=== PATIENT | male | born 1985 | race African-American/Black ===

== ENCOUNTER 2017-07-08 12:31 | Inpatient (IN) | payer OTHER ==
[2017-07-08 13:27] VITALS: BMI 33.9
--- NOTE | 2017-07-08 13:38 | HP ---
CIWA Score - CIWA Score Nausea/Vomitin-Mild Nausea/No Vomiting Muscle Tremors: 4-Moderate,w/Arms Extend Anxiety: 4-Mod. Anxious/Guarded Agitation: 0-Normal Activity Paroxysmal Sweats: 1-Minimal Palms Moist Orientation: 0-Oriented Tacttile Disturbances: 1-Very Mild Itch/Numbness Auditory Disturbances: 1-Very Mild Visual Disturbances: 1-Very Mild Sensitivity Headache: 1-Very Mild CIWA-Ar Total Score: 14 Admission ROS BHS - HPI Chief Complaint: I need help to stop drinking Allergies/Adverse Reactions: Allergies Allergy/AdvReac Type Severity Reaction Status Date / Time No Known Drug Allergies Allergy Verified 10/11/16 12:58 shellfish derived Allergy Hives Verified 10/11/16 12:58 History of Present Illness: 32 yo gentleman here for detox from alcohol, also using pcp and cocaine. Last detox was here in september 2016, was in [place] in February. History seizure as child, no meds. Exam Limitations: Clinical Condition - Ebola screening Have you traveled outside of the country in the last 21 days: No Have you had contact with anyone from an Ebola affected area: No Have you been sick,other than usual withdrawal symptoms: No Do you have a fever: No - Review of Systems Constitutional: Loss of Appetite, Malaise, Changes in sleep EENT: reports: No Symptoms Reported Respiratory: reports: No Symptoms reported Cardiac: reports: No Symptoms Reported GI: reports: Nausea, Indigestion : reports: Frequency Integumentary: reports: No Symptoms Reported Neuro: reports: Headache Endocrine: reports: No Symptoms Reported Hematology: reports: No Symptoms Reported Psychiatric: reports: Judgement Intact, Mood/Affect Appropiate, Orientated x3, Anxious Other Systems: Reviewed and Negative Patient History - Patient Medical History Hx Anemia: No Hx Asthma: Yes Hx Chronic Obstructive Pulmonary Disease (COPD): No Hx Cancer: No Hx Cardiac Disorders: No Hx Congestive Heart Failure: No Hx Hypertension: No Hx Hypercholesterolemia: No Hx Pacemaker: No HX Cerebrovascular Accident: No Hx Seizures: Yes (AGE 6 NOT ON MEDS) Hx Dementia: No Hx Diabetes: No Hx Gastrointestinal Disorders: No Hx Liver Disease: No Hx Genitourinary Disorders: No Hx Sexually Transmitted Disorders: No Hx Renal Disease (ESRD): No Hx Thyroid Disease: No Hx Human Immunodeficiency Virus (HIV): No Hx Hepatitis C: No Hx Depression: Yes (NOT ON MEDS currently, hx hospitalization) Hx Suicide Attempt: Yes (years ago - tried to jump off bridge) Hx Bipolar Disorder: Yes (ON MEDS ) Hx Schizophrenia: Yes Other Medical History: psoriasis - Patient Surgical History Past Surgical History: No Hx Neurologic Surgery: No Hx Cataract Extraction: No Hx Cardiac Surgery: No Hx Lung Surgery: No Hx Breast Surgery: No Hx Breast Biopsy: No Hx Abdominal Surgery: No Hx Appendectomy: No Hx Cholecystectomy: No Hx Genitourinary Surgery: No Hx Section: No Hx Orthopedic Surgery: No Anesthesia Reaction: No - PPD History Date: 08/04/16 Results: 0 - Reproductive History Patient is a Female of Child Bearing Age (11 -55 yrs old): No (male) - Smoking Cessation Smoking history: Current every day smoker Have you smoked in the past 12 months: Yes Aproximately how many cigarettes per day: 30 Cigars Per Day: 0 Hx Chewing Tobacco Use: No Initiated information on smoking cessation: Yes 'Breaking Loose' booklet given: 07/08/17 (give on floor) - Substance & Tx. History Hx Alcohol Use: Yes Hx Substance Use: Yes Substance Use Type: Alcohol, Cocaine Hx Substance Use Treatment: Yes (detox, rehab) - Substances Abused Alcohol Route: Oral Frequency: 3-6 times per week Amount used: six 12 oz beer; 1/2 pint liquor Age of first use: 13 Date of Last Use: 07/07/17 Cocaine Route: Inhalation Frequency: 1-2 times per week Amount used: $40 Age of first use: 18 Date of Last Use: 07/05/17 PCP Route: Smoking Frequency: 3-6 times per week Amount used: $40 Age of first use: 15 Date of Last Use: 07/07/17 Family Disease History - Family Disease History Family Disease History: Respiratory: Brother (3 living - one with asthma), Sister (two living - one with asthma), Other: Father (living, hx drugs and etoh) , Mother (living, hx GERD), Son (one age 12 ), Daughter (two ages 10 and 5 - healthy) Admission Physical Exam BHS - Vital Signs Vital Signs: Vital Signs - 24 hr 07/08/17 13:17 Temperature 97 F L Pulse Rate 102 H Respiratory 20 Rate Blood Pressure 124/68 - Physical General Appearance: Yes: Nourished, Appropriately Dressed, Mild Distress, Obese , Anxious HEENTM: Yes: Hearing grossly Normal, Normal ENT Inspection, Normocephalic, Normal Voice, Pharynx Normal Respiratory: Yes: Normal Breath Sounds, No Respiratory Distress Neck: Yes: No masses,lesions,Nodules, Supple Breast: Yes: Breast Exam Deferred Cardiology: Yes: Regular Rhythm, Regular Rate Abdominal: Yes: Soft Genitourinary: Yes: Frequency Back: Yes: Normal Inspection Musculoskeletal: Yes: full range of Motion, Gait Steady Extremities: Yes: Normal Inspection, Non-Tender Neurological: Yes: Fully Oriented, Alert, Motor Strength 5/5, Normal Response, Depressed Affect Integumentary: Yes: Normal Color, Warm, Rash (psoriatic plaques both legs, scattered rash on back and upper arms) Lymphatic: Yes: Within Normal Limits - Diagnostic (1) Alcohol dependence with uncomplicated withdrawal Current Visit: Yes Status: Chronic (2) Cocaine dependence, uncomplicated Current Visit: Yes Status: Chronic (3) Nicotine dependence Current Visit: Yes Status: Chronic Qualifiers: Nicotine product type: cigarettes Substance use status: uncomplicated Qualified Code(s): F17.210 - Nicotine dependence, cigarettes, uncomplicated (4) PCP dependence Current Visit: Yes Status: Chronic (5) Asthma Current Visit: Yes Status: Chronic Qualifiers: Asthma severity: mild intermittent Asthma complication type: with status asthmaticus Qualified Code(s): J45.22 - Mild intermittent asthma with status asthmaticus (6) Psoriasis Current Visit: Yes Status: Chronic Cleared for Admission [facility] - Detox or Rehab [facility] Level of Care: Medically Managed Detox Regimen/Protocol: Librium [facility] Breath Alcohol Content Breath Alcohol Content: 0.081 Urine Drug Screen - Results Drug Screen Negative: No Urine Drug Screen Results: [place]SA-Cocaine, PCP-Phencyclidine
[2017-07-08] MEDS ORDERED: MAGNESIUM CITRATE 300 ML BOTTLE PO PRN (13:55)
[2017-07-08] MEDS ORDERED: MENTHOL/PHENOL 1 EACH UD MM PRN (13:55)
[2017-07-08] MEDS ORDERED: guaiFENesin/D-METHORPHAN HB 10 ML UNIT-DOSE CUPS PO PRN (13:55)
[2017-07-08] MEDS ORDERED: P-EPHED 60MG/TRIPROLIDI 2.5MG TABLET PO PRN (13:55)
[2017-07-08] MEDS ORDERED: LOPERAMIDE HCL 2 MG CAPSULE PO PRN (13:55)
[2017-07-08] MEDS ORDERED: NICOTINE POLACRILEX 4 MG GUM BUC PRN (13:55)
[2017-07-08] MEDS ORDERED: ACETAMINOPHEN 325 MG TABLET (FP) PO PRN (13:55)
[2017-07-08] MEDS ORDERED: chlordiazePOXIDE HCL 25 MG CAPSULE PO PRN (13:55)
[2017-07-08] MEDS ORDERED: IBUPROFEN 400 MG TABLET (FP) PO PRN (13:55)
[2017-07-08] MEDS ORDERED: MAGNESIUM HYDROX 2400MG/30ML ORAL SUSPENSION 30 ML CUP PO PRN (13:55)
[2017-07-08] MEDS ORDERED: MAG HYDROX/AL HYDROX/SIMETH 30 ML UNIT-DOSE CUP PO PRN (13:55)
[2017-07-08] MEDS ORDERED: KETOCONAZOLE 2 % SHAMPOO 120 ML BOTTLE TP SCH (14:00)
[2017-07-08] MEDS ORDERED: BETAMETHASONE VALERATE 0.1% CREAM 15 GM TUBE TP SCH (14:00)
[2017-07-08] MEDS ORDERED: COLLOIDAL OATMEAL 1 BAR EACH TP PRN (14:23)
[2017-07-08] MEDS ORDERED: chlordiazePOXIDE HCL 25 MG CAPSULE PO ONE (16:30)
[2017-07-08] MEDS ORDERED: BETAMETHASONE VALERATE 0.1% CREAM 15 GM TUBE TP PRN (17:25)
[2017-07-08] MEDS: chlordiazePOXIDE HCL 25 MG CAPSULE PO SCH ×2 (17:32→22:06)
[2017-07-08] MEDS ORDERED: ALBUTEROL SO4 6.7 GM HFA INHALER IH PRN (19:08)
[2017-07-08] MEDS: ALBUTEROL SO4 6.7 GM HFA INHALER IH SCH (19:54)
[2017-07-08] MEDS: AMMONIUM LACTATE 12% LOTION 225 GM BOTTLE TP SCH ×2 (20:00→21:40)
[2017-07-08] MEDS: THIAMINE HCL 100 MG TABLET (FP) PO SCH (22:06)
[2017-07-08] MEDS: PATIENT'S OWN MEDICATION (NON-FORMULARY) (Apremilast [Otezla] 30 MG) PO SCH (22:06)
[2017-07-08] MEDS: diphenhydrAMINE HCL 50 MG CAPSULE PO PRN (22:09)
[2017-07-09] MEDS: chlordiazePOXIDE HCL 25 MG CAPSULE PO SCH ×4 (05:31→22:03)
--- NOTE | 2017-07-09 08:45 | EKG ---
Test Reason : Blood Pressure : / mmHG Vent. Rate : 081 BPM Atrial Rate : 081 BPM P-R Int : 154 ms QRS Dur : 086 ms QT Int : 396 ms P-R-T Axes : 061 053 046 degrees QTc Int : 460 ms SINUS RHYTHM WITH MARKED SINUS ARRHYTHMIA WITH OCCASIONAL PREMATURE VENTRICULAR COMPLEXES OTHERWISE NORMAL ECG NO PREVIOUS ECGS AVAILABLE Confirmed by MD HERNAN, FLORES ([id number]) on 07/09/2017 8:45:21 AM Referred By: Confirmed By:FLORES BECERRA MD
--- NOTE | 2017-07-09 08:57 | HP ---
Psychiatrist Admission - Data Vital Signs: Vital Signs - 24 hr 07/08/17 07/08/17 07/08/17 13:17 18:45 22:26 Temperature 97 F L 97.5 F L 98.3 F Pulse Rate 102 H 81 70 Respiratory 20 18 18 Rate Blood Pressure 124/68 120/81 108/73 07/09/17 07/09/17 07/09/17 00:59 03:20 06:32 Temperature 95.5 F L Pulse Rate 77 Respiratory 18 18 18 Rate Blood Pressure 115/56 Allergies/Adverse Reactions: Allergies Allergy/AdvReac Type Severity Reaction Status Date / Time No Known Drug Allergies Allergy Verified 07/08/17 15:38 shellfish derived Allergy Hives Verified 07/08/17 15:38
--- NOTE | 2017-07-09 08:58 | CONSULT ---
[facility] Psychiatric Consult - Data Date of interview: 07/09/17 Admission source: Self-referred Identifying data: Mr Yip is a 32 years old single male, father of 4 children, unemployed on SSI, homeless seeking detox treatment for alcohol, cocaine and pcp Substance Abuse History: Reports history of alcohol, cocaine and pcp use. He started drinking alcohol at age 13, smoking pcp at 15 and using cocaine at 18. He consumes half a pint of liquor & 6x 12oz of beer 3-6 times weekly, $40 worth of pcp 3-6 times weekly and $40 worth of cocaine 1-2 times weekly. Last drank beer & smoked pcp on 07/07/17 and used cocaine on 07/05/17 Medical History: Significant for Asthma, Psoriatic arthritis and history of seizure once at age 1 or 2. Smokes cigarettes 1.5ppd Psychiatric History: Reports that his first psychiatric contact was in 2007 [facility] but does not rememeber much about it. His first psychiatric hospitalization was in Nov 2015 at [facility] in [place]. He was diagnosed with Bipolar/ Schizoprenia and started on medications. Reports 4 subsequent hospitalizations at [place] [address] & [facility] once. Most recent one was in Aug 2016 at [facility]. He was discharged on Depakote 1500 mg po BID, [place] 600 mg po BID, Risperdal 3 mg po BID, Seroquel 200 mg po HS and Hydroxyzine 25 mg po TID. Reports that he was referred to [facility] but never attended. Claims that he was placed on a waiting list and was never called. 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 Reports getting some psychotropic medications prescribed by his primary care physician byt could not name them. According to pharmacy search, he filled scripts for Depakote 500 mg po BID & Cogentin 1 mg po BID on 01/31/17 and Paxil 40 mg po daily & ambien 5 mg po HS on 06/05/17. He wants to resume taking Paxil and Ambien and Seroquel at this time Reports history of 3 suicidal attempts by trying to jum off a bridge. Physical/Sexual Abuse/Trauma History: Denies history of verbal, physical or sexual abuse as well as DV relationship Additional Comment: Reports history of multiple previous misdemeanor arrests. No probation or open case at present Mental Status Exam - Mental Status Exam Alert and Oriented to: Time, Place, Person Cognitive Function: Fair Patient Appearance: Well Groomed Mood: Depressed, Anxious Affect: Normal Range Patient Behavior: Cooperative Speech Pattern: Clear Voice Loudness: Normal Thought Process: Intact, Goal Oriented Thought Disorder: Not Present Hallucinations: Denies Suicidal Ideation: Denies Homicidal Ideation: Denies Insight/Judgement: Poor Sleep: Poorly Appetite: Fair Muscle strength/Tone: Normal Gait/Station: Normal Psychiatric Findings - Problem List ([place] 1, 2,3) (1) Schizoaffective disorder Current Visit: No Status: Acute (2) Alcohol dependence with uncomplicated withdrawal Current Visit: Yes Status: Chronic (3) Cocaine dependence, uncomplicated Current Visit: Yes Status: Chronic (4) Nicotine dependence Current Visit: Yes Status: Chronic Qualifiers: Nicotine product type: cigarettes Substance use status: uncomplicated Qualified Code(s): F17.210 - Nicotine dependence, cigarettes, uncomplicated (5) Asthma Current Visit: Yes Status: Chronic Qualifiers: Asthma severity: mild intermittent Asthma complication type: with status asthmaticus Qualified Code(s): J45.22 - Mild intermittent asthma with status asthmaticus (6) Psoriasis Current Visit: Yes Status: Chronic - Initial Treatment Plan Initial Treatment Plan: 1) Resume Paxil 40 mg po daily and Ambien 5 mg po HS prn for insomnia. 2) Start Seroquel 100 mg po HS. 3) Continue inpatient detoxification
[2017-07-09] MEDS: PATIENT'S OWN MEDICATION (NON-FORMULARY) (Apremilast [Otezla] 30 MG) PO SCH ×2 (10:09→22:03)
[2017-07-09] MEDS: PRENATAL VITAMINS W/ FOLIC ACID TABLET (FP) PO SCH (10:09)
[2017-07-09] MEDS: hydrOXYzine PAMOATE 25 MG CAPSULE (FP) PO PRN (10:11)
[2017-07-09] MEDS: AMMONIUM LACTATE 12% LOTION 225 GM BOTTLE TP SCH ×2 (10:12→22:02)
[2017-07-09 10:17] LABS: MCH 31.2 pg (25.7-33.7); MCHC 32.7 g/dl (32.0-35.9); MEAN CELL VOLUME 95.2 fl (80-96); MEAN PLT VOLUME 9.7 fl (7.5-11.1); PLATELET COUNT 233 K/MM3 (134-434); RDW 14.2 % (11.9-15.9); WHITE BLOOD COUNT 7.3 K/mm3 (4.0-10.0)
[2017-07-09 10:18] LABS: URINE APPEARANCE SLCLOUDY; URINE BILIRUBIN NEGATIVE (NEGATIVE); URINE BLOOD NEGATIVE (NEGATIVE); URINE COLOR AMBER; URINE GLUCOSE (UA) NEGATIVE (NEGATIVE); URINE KETONE NEGATIVE (NEGATIVE); URINE LEUK ESTERASE NEGATIVE (NEGATIVE); URINE NITRITE NEGATIVE (NEGATIVE); URINE PROTEIN NEGATIVE (NEGATIVE); URINE UROBILINOGEN NEGATIVE mg/dL (0.2-1.0)
[2017-07-09 10:29] LABS: ALBUMIN 3.3 g/dl (3.4-5.0); ANION GAP 7 (8-16); CALCIUM 8.6 mg/dL (8.5-10.1); CO2 30 mmol/L (21-32); CREATININE 0.9 mg/dL (0.7-1.3); GLUCOSE,RANDOM 87 mg/dL (74-106); SGOT/AST 13 U/L (15-37); SGPT/ALT 28 U/L (12-78)
[2017-07-09 10:32] LABS: ALK PHOS 62 U/L (45-117); BILIRUBIN,TOTAL 0.8 mg/dL (0.2-1.0)
[2017-07-09 11:01] LABS: HIV 1 & 2 AB NEGATIVE; HIV 1 AGp24 NEGATIVE
[2017-07-09] MEDS: PARoxetine HCL 20 MG TABLET (FP) PO SCH (13:22)
--- NOTE | 2017-07-09 13:27 | PN ---
[facility] CIWA - CIWA Score Nausea/Vomitin Muscle Tremors: 3 Anxiety: 3 Agitation: 4-Moderately Restless Paroxysmal Sweats: 3 Orientation: 0-Oriented Tacttile Disturbances: 1-Very Mild Itch/Numbness Auditory Disturbances: 0-None Visual Disturbances: 0-None Headache: 0-None Present CIWA-Ar Total Score: 17 S Progress Note (SOAP) Subjective: Tremor, chills, nausea, interrupted sleep, sweating Objective: 07/09/17 13:25 Last Vital Signs Temp Pulse Resp BP Pulse Ox 98.1 F 70 18 114/66 07/09/17 09:56 07/09/17 09:56 07/09/17 09:56 07/09/17 09:56 Laboratory Tests 07/09/17 07/09/17 07/09/17 07:30 07:30 07:30 WBC 7.3 RBC 4.52 Hgb 14.1 Hct 43.1 MCV 95.2 MCH 31.2 MCHC 32.7 RDW 14.2 Plt Count 233 D MPV 9.7 Sodium 138 Potassium 4.1 Chloride 101 Carbon Dioxide 30 Anion Gap 7 L BUN 8 Creatinine 0.9 Creat Clearance w eGFR > 60 Random Glucose 87 Calcium 8.6 Total Bilirubin 0.8 D AST 13 L ALT 28 D Alkaline Phosphatase 62 Total Protein 6.0 L Albumin 3.3 L Urine Color Urine Appearance Urine pH Ur Specific [place] Urine Protein Urine Glucose (UA) Urine Ketones Urine Blood Urine Nitrite Urine Bilirubin Urine Urobilinogen RPR Titer Nonreactive HIV 1&2 Antibody Screen HIV P24 Antigen 07/09/17 07/09/17 07:30 08:50 WBC RBC Hgb Hct MCV MCH MCHC RDW Plt Count MPV Sodium Potassium Chloride Carbon Dioxide Anion Gap BUN Creatinine Creat Clearance w eGFR Random Glucose Calcium Total Bilirubin AST ALT Alkaline Phosphatase Total Protein Albumin Urine Color Ly Urine Appearance Slcloudy Urine pH 5.0 Ur Specific [place] >= 1.030 H Urine Protein Negative Urine Glucose (UA) Negative Urine Ketones Negative Urine Blood Negative Urine Nitrite Negative Urine Bilirubin Negative Urine Urobilinogen Negative RPR Titer HIV 1&2 Antibody Screen Negative HIV P24 Antigen Negative Labs noted Assessment: 07/09/17 13:26 Withdrawal symptoms History of psoriasis/seborrheic dermatitis: on nizoral topical shampoo q3 days, only available as cream as per pharmacist Plan: Continue detox Encouraged to drink lots of water Psoriasis/seborrheic dermatitis: d/c nizoral shampoo, ordered for nizoral topical cream 2% apply daily x 3 days (lather, then rinse after 5 minutes), f/u with PCP or Stamping Die Maker post discharge for management
[2017-07-09] MEDS: NICOTINE 21 MG/24 HOURS TOPICAL PATCH TD SCH (18:15)
[2017-07-09] MEDS ORDERED: QUEtiapine FUMARATE 200 MG TABLET PO SCH (22:00)
[2017-07-09] MEDS: ZOLPIDEM TARTRATE 5 MG TABLET PO PRN (22:03)
[2017-07-09] MEDS: QUEtiapine FUMARATE 100 MG TABLET (FP) PO SCH (22:03)
[2017-07-09] MEDS: THIAMINE HCL 100 MG TABLET (FP) PO SCH (22:03)
[2017-07-10] MEDS: chlordiazePOXIDE HCL 25 MG CAPSULE PO SCH ×2 (05:54→10:17)
[2017-07-10] MEDS ORDERED: KETOCONAZOLE 2% CREAM - 60GM TUBE TP SCH (10:00)
[2017-07-10] MEDS: KETOCONOZOLE 2% TOPICAL CREAM 15 GM TUBE TP SCH (10:14)
[2017-07-10] MEDS: NICOTINE 21 MG/24 HOURS TOPICAL PATCH TD SCH (10:15)
[2017-07-10] MEDS: AMMONIUM LACTATE 12% LOTION 225 GM BOTTLE TP SCH ×2 (10:16→22:03)
[2017-07-10] MEDS: PARoxetine HCL 20 MG TABLET (FP) PO SCH (10:16)
[2017-07-10] MEDS: PATIENT'S OWN MEDICATION (NON-FORMULARY) (Apremilast [Otezla] 30 MG) PO SCH ×2 (10:16→22:02)
[2017-07-10] MEDS: PRENATAL VITAMINS W/ FOLIC ACID TABLET (FP) PO SCH (10:17)
--- NOTE | 2017-07-10 10:46 | PN ---
[facility] CIWA - CIWA Score Nausea/Vomitin-No Nausea/No Vomiting Muscle Tremors: 4-Moderate,w/Arms Extend Anxiety: 4-Mod. Anxious/Guarded Agitation: 4-Moderately Restless Paroxysmal Sweats: 3 Orientation: 0-Oriented Tacttile Disturbances: 0-None Auditory Disturbances: 0-None Visual Disturbances: 0-None Headache: 0-None Present CIWA-Ar Total Score: 15 BHS Progress Note (SOAP) Subjective: Anxiety,tremors,sweating,interrupted sleep,restless Objective: 07/10/17 10:44 Vital Signs - 8 hr 07/10/17 07/10/17 07/10/17 03:21 06:09 09:04 Temperature 96.7 F L 97.5 F L Pulse Rate 87 70 Respiratory 18 18 18 Rate Blood Pressure 124/70 120/73 Laboratory Last Values WBC 7.3 K/mm3 (4.0-10.0) 07/09/17 07:30 RBC 4.52 M/mm3 (4.00-5.60) 07/09/17 07:30 Hgb 14.1 GM/dL (11.7-16.9) 07/09/17 07:30 Hct 43.1 % (35.4-49) 07/09/17 07:30 MCV 95.2 fl (80-96) 07/09/17 07:30 MCH 31.2 pg (25.7-33.7) 07/09/17 07:30 MCHC 32.7 g/dl (32.0-35.9) 07/09/17 07:30 RDW 14.2 % (11.9-15.9) 07/09/17 07:30 Plt Count 233 K/MM3 (134-434) D 07/09/17 07:30 MPV 9.7 fl (7.5-11.1) 07/09/17 07:30 Sodium 138 mmol/L (136-145) 07/09/17 07:30 Potassium 4.1 mmol/L (3.5-5.1) 07/09/17 07:30 Chloride 101 mmol/L (98-107) 07/09/17 07:30 Carbon Dioxide 30 mmol/L (21-32) 07/09/17 07:30 Anion Gap 7 (8-16) L 07/09/17 07:30 BUN 8 mg/dL (7-18) 07/09/17 07:30 Creatinine 0.9 mg/dL (0.7-1.3) 07/09/17 07:30 Creat Clearance w eGFR > 60 (>60) 07/09/17 07:30 Random Glucose 87 mg/dL (74-106) 07/09/17 07:30 Calcium 8.6 mg/dL (8.5-10.1) 07/09/17 07:30 Total Bilirubin 0.8 mg/dL (0.2-1.0) D 07/09/17 07:30 AST 13 U/L (15-37) L 07/09/17 07:30 ALT 28 U/L (12-78) D 07/09/17 07:30 Alkaline Phosphatase 62 U/L (45-117) 07/09/17 07:30 Total Protein 6.0 g/dl (6.4-8.2) L 07/09/17 07:30 Albumin 3.3 g/dl (3.4-5.0) L 07/09/17 07:30 Urine Color Ly 07/09/17 08:50 Urine Appearance Slcloudy 07/09/17 08:50 Urine pH 5.0 (5.0-8.0) 07/09/17 08:50 Ur Specific [place] >= 1.030 (1.005-1.025) H 07/09/17 08:50 Urine Protein Negative (NEGATIVE) 07/09/17 08:50 Urine Glucose (UA) Negative (NEGATIVE) 07/09/17 08:50 Urine Ketones Negative (NEGATIVE) 07/09/17 08:50 Urine Blood Negative (NEGATIVE) 07/09/17 08:50 Urine Nitrite Negative (NEGATIVE) 07/09/17 08:50 Urine Bilirubin Negative (NEGATIVE) 07/09/17 08:50 Urine Urobilinogen Negative mg/dL (0.2-1.0) 07/09/17 08:50 RPR Titer Nonreactive (NONREACTIVE) 07/09/17 07:30 HIV 1&2 Antibody Screen Negative 07/09/17 07:30 HIV P24 Antigen Negative 07/09/17 07:30 labs noted Assessment: 07/10/17 10:45 Withdrawal sx. Plan: Continue detox
[2017-07-10] MEDS: chlordiazePOXIDE 5 MG CAPSULE PO SCH ×2 (17:12→22:03)
[2017-07-10] MEDS: hydrOXYzine PAMOATE 25 MG CAPSULE (FP) PO PRN (17:14)
[2017-07-10] MEDS: THIAMINE HCL 100 MG TABLET (FP) PO SCH (22:02)
[2017-07-10] MEDS: QUEtiapine FUMARATE 100 MG TABLET (FP) PO SCH (22:03)
[2017-07-10] MEDS: ZOLPIDEM TARTRATE 5 MG TABLET PO PRN (22:03)
[2017-07-11] MEDS: hydrOXYzine PAMOATE 25 MG CAPSULE (FP) PO PRN ×3 (01:02→17:14)
[2017-07-11] MEDS: chlordiazePOXIDE 5 MG CAPSULE PO SCH ×2 (05:44→10:07)
[2017-07-11] MEDS: PRENATAL VITAMINS W/ FOLIC ACID TABLET (FP) PO SCH (10:07)
[2017-07-11] MEDS: PARoxetine HCL 20 MG TABLET (FP) PO SCH (10:08)
[2017-07-11] MEDS: KETOCONOZOLE 2% TOPICAL CREAM 15 GM TUBE TP SCH (10:08)
[2017-07-11] MEDS: NICOTINE 21 MG/24 HOURS TOPICAL PATCH TD SCH (10:08)
[2017-07-11] MEDS: PATIENT'S OWN MEDICATION (NON-FORMULARY) (Apremilast [Otezla] 30 MG) PO SCH ×2 (10:09→22:11)
[2017-07-11] MEDS: AMMONIUM LACTATE 12% LOTION 225 GM BOTTLE TP SCH ×2 (10:09→22:09)
--- NOTE | 2017-07-11 12:09 | PN ---
BHS Progress Note (SOAP) Subjective: Tremors, Body Aches, Sweating, Interrupted sleep. Objective: PT. A & O X 3, OBSERVED AMBULATING ON UNIT. NO ACUTE DISTRESS. 07/11/17 12:04 Vital Signs Temperature 98.9 F 07/11/17 09:20 Pulse Rate 101 H 07/11/17 09:20 Respiratory Rate 20 07/11/17 09:20 Blood Pressure 123/76 07/11/17 09:20 O2 Sat by Pulse Oximetry (%) Laboratory Tests 07/09/17 07/09/17 07/09/17 07:30 07:30 07:30 WBC 7.3 RBC 4.52 Hgb 14.1 Hct 43.1 MCV 95.2 MCH 31.2 MCHC 32.7 RDW 14.2 Plt Count 233 D MPV 9.7 Sodium 138 Potassium 4.1 Chloride 101 Carbon Dioxide 30 Anion Gap 7 L BUN 8 Creatinine 0.9 Creat Clearance w eGFR > 60 Random Glucose 87 Calcium 8.6 Total Bilirubin 0.8 D AST 13 L ALT 28 D Alkaline Phosphatase 62 Total Protein 6.0 L Albumin 3.3 L Urine Color Urine Appearance Urine pH Ur Specific [place] Urine Protein Urine Glucose (UA) Urine Ketones Urine Blood Urine Nitrite Urine Bilirubin Urine Urobilinogen RPR Titer Nonreactive HIV 1&2 Antibody Screen HIV P24 Antigen 07/09/17 07/09/17 07:30 08:50 WBC RBC Hgb Hct MCV MCH MCHC RDW Plt Count MPV Sodium Potassium Chloride Carbon Dioxide Anion Gap BUN Creatinine Creat Clearance w eGFR Random Glucose Calcium Total Bilirubin AST ALT Alkaline Phosphatase Total Protein Albumin Urine Color Ly Urine Appearance Slcloudy Urine pH 5.0 Ur Specific [place] >= 1.030 H Urine Protein Negative Urine Glucose (UA) Negative Urine Ketones Negative Urine Blood Negative Urine Nitrite Negative Urine Bilirubin Negative Urine Urobilinogen Negative RPR Titer HIV 1&2 Antibody Screen Negative HIV P24 Antigen Negative LABS NOTED. Assessment: 07/11/17 12:05 WITHDRAWAL SYMPTOMS. Plan: CONTINUE DETOX.
[2017-07-11] MEDS: chlordiazePOXIDE HCL 10 MG CAPSULE PO SCH ×2 (17:12→22:11)
[2017-07-11] MEDS: THIAMINE HCL 100 MG TABLET (FP) PO SCH (22:09)
[2017-07-11] MEDS: QUEtiapine FUMARATE 100 MG TABLET (FP) PO SCH (22:11)
[2017-07-11] MEDS: diphenhydrAMINE HCL 50 MG CAPSULE PO PRN (22:12)
[2017-07-12] MEDS: chlordiazePOXIDE HCL 10 MG CAPSULE PO SCH (05:43)
[2017-07-12 06:26] VITALS: BP 116/70; PULSE 72; TEMP 96.8
--- NOTE | 2017-07-12 16:05 | DS ---
[facility] Detox Discharge Summary Admission Date: 07/08/17 Discharge Date: 07/12/17 - History Present History: Alcohol Dependence, Cocaine Dependence, Pcp Dependence Additional Comments: PATIENT RETURNING TO [facility] ([place] [facility] FOR AFTERCARE. PATIENT WAS DISCHARGED FROM DETOX UNIT IN STABLE MEDICAL CONDITION. Pertinent Past History: Asthma, COPD, Depression, Bipolar disorder, Schizophrenia, Psoriasis, Nicotine Dependence. - Physical Exam Results Vital Signs: Vital Signs Temperature 96.8 F L 07/12/17 06:25 Pulse Rate 72 07/12/17 06:25 Respiratory Rate 18 07/12/17 06:25 Blood Pressure 116/70 07/12/17 06:25 O2 Sat by Pulse Oximetry (%) Pertinent Admission Physical Exam Findings: WITHDRAWAL SYMPTOMS. Laboratory Tests 07/09/17 07/09/17 07/09/17 07:30 07:30 07:30 WBC 7.3 RBC 4.52 Hgb 14.1 Hct 43.1 MCV 95.2 MCH 31.2 MCHC 32.7 RDW 14.2 Plt Count 233 D MPV 9.7 Sodium 138 Potassium 4.1 Chloride 101 Carbon Dioxide 30 Anion Gap 7 L BUN 8 Creatinine 0.9 Creat Clearance w eGFR > 60 Random Glucose 87 Calcium 8.6 Total Bilirubin 0.8 D AST 13 L ALT 28 D Alkaline Phosphatase 62 Total Protein 6.0 L Albumin 3.3 L Urine Color Urine Appearance Urine pH Ur Specific [place] Urine Protein Urine Glucose (UA) Urine Ketones Urine Blood Urine Nitrite Urine Bilirubin Urine Urobilinogen RPR Titer Nonreactive HIV 1&2 Antibody Screen HIV P24 Antigen 07/09/17 07/09/17 07:30 08:50 WBC RBC Hgb Hct MCV MCH MCHC RDW Plt Count MPV Sodium Potassium Chloride Carbon Dioxide Anion Gap BUN Creatinine Creat Clearance w eGFR Random Glucose Calcium Total Bilirubin AST ALT Alkaline Phosphatase Total Protein Albumin Urine Color Ly Urine Appearance Slcloudy Urine pH 5.0 Ur Specific [place] >= 1.030 H Urine Protein Negative Urine Glucose (UA) Negative Urine Ketones Negative Urine Blood Negative Urine Nitrite Negative Urine Bilirubin Negative Urine Urobilinogen Negative RPR Titer HIV 1&2 Antibody Screen Negative HIV P24 Antigen Negative LABS NOTED. - Treatment Hospital Course: Detox Protocol Followed, Detoxed Safely, Responded well, Discharged Condition Good Patient has Accepted a Rehab Referral to: NO. PT RETURNING TO [facility] ([place], [place]). - Medication Discharge Medications: Ambulatory Orders Apremilast [Otezla] 30 mg PO BID #60 tablet 08/30/16 Quetiapine Fumarate [Seroquel -] 200 mg PO HS 10/03/16 Albuterol Sulfate Inhaler - [Ventolin HFA Inhaler -] 2 inh IH Q4H #1 inhaler Ammonium Lactate Lotion [Lac-Hydrin 12] 1 applic TP BID #1 bottle 10/07/16 Betamethasone Valerate 45 gm TP PRN #1 cream..g. 10/07/16 Ketoconazole 2% Shampoo [Nizoral 2% Shampoo -] 1 applic TP Q72H #1 bottle Paroxetine HCl [Paxil] 40 mg PO DAILY #30 tablet 07/09/17 Quetiapine Fumarate [Seroquel] 100 mg PO HS #30 tablet 07/09/17 - Diagnosis (1) Alcohol dependence with uncomplicated withdrawal Status: Acute (2) Asthma Status: Chronic Qualifiers: Asthma severity: mild intermittent Asthma complication type: uncomplicated Qualified Code(s): J45.20 - Mild intermittent asthma, uncomplicated (3) Cocaine dependence, uncomplicated Status: Chronic (4) Nicotine dependence Status: Chronic Qualifiers: Nicotine product type: cigarettes Substance use status: uncomplicated Qualified Code(s): F17.210 - Nicotine dependence, cigarettes, uncomplicated (5) PCP dependence Status: Chronic (6) Psoriasis Status: Chronic (7) Schizoaffective disorder Status: Acute Qualifiers: Schizoaffective disorder type: unspecified Qualified Code(s): F25.9 - Schizoaffective disorder, unspecified (8) Substance-induced sleep disorder Status: Acute (9) COPD (chronic obstructive pulmonary disease) Status: Chronic Qualifiers: COPD type: emphysema Emphysema type: unilateral Qualified Code(s ): J43.0 - Unilateral pulmonary emphysema [MacLeod's syndrome] (10) Schizophrenia Status: Chronic Qualifiers: Schizophrenia type: disorganized schizophrenia Qualified Code(s): F20.1 - Disorganized schizophrenia (11) Substance induced mood disorder Status: Suspected - AMA Did Patient Leave Against Medical Advice: No
== END 2017-07-12 09:40 | disposition home or self-care (01) | DRG 774 ==
LOC: YASAS 12:31 → Y3N 15:44
PROVIDERS: ADMIT Internal Medicine; ATTEND Internal Medicine
PROC: HZ2ZZZZ Detoxification Services for Substance Abuse Treatment (ICD-10-PCS; principal; 2017-07-08)
DX: F10.230 Alcohol dependence with withdrawal, uncomplicated (principal); F14.20 Cocaine dependence, uncomplicated; F16.20 Hallucinogen dependence, uncomplicated; F17.210 Nicotine dependence, cigarettes, uncomplicated; F25.9 Schizoaffective disorder, unspecified; F19.24 Other psychoactive substance dependence with psychoactive substance-induced mood disorder; F19.282 Other psychoactive substance dependence with psychoactive substance-induced sleep disorder; F20.1 Disorganized schizophrenia; J45.20 Mild intermittent asthma, uncomplicated; J43.0 Unilateral pulmonary emphysema [MacLeod's syndrome]; E66.9 Obesity, unspecified; L40.9 Psoriasis, unspecified; Z68.33 Body mass index [BMI] 33.0-33.9, adult; Z86.69 Personal history of other diseases of the nervous system and sense organs; Z91.013 Allergy to seafood; Z91.5 Personal history of self-harm
CPT/HCPCS: 36415; 80053; 81003; 85027; 86593; 87389; 93005; 93010

== ENCOUNTER 2017-11-01 08:15 | Inpatient (IN) | payer OTHER ==
[2017-11-01 09:51] VITALS: BMI 33.9
--- NOTE | 2017-11-01 13:35 | HP ---
CIWA Score - CIWA Score Nausea/Vomitin-No Nausea/No Vomiting Muscle Tremors: 3 Anxiety: 5 Agitation: 4-Moderately Restless Paroxysmal Sweats: 1-Minimal Palms Moist Orientation: 0-Oriented Tacttile Disturbances: 3-Moderate Itch/Numb/Burn Auditory Disturbances: 0-None Visual Disturbances: 0-None Headache: 1-Very Mild CIWA-Ar Total Score: 17 Admission ROS S - HPI Chief Complaint: WITHDRAWAL SX FROM ALCOHOL. Allergies/Adverse Reactions: Allergies Allergy/AdvReac Type Severity Reaction Status Date / Time No Known Drug Allergies Allergy Verified 11/01/17 10:10 shellfish derived Allergy Hives Verified 11/01/17 10:10 History of Present Illness: 32 Y/O H/MALE WITH A HX OF ALCOHOL,PCP,MARIJUANA AND COCAINE DEPENDENCE SEEKING DETOX [place]. Exam Limitations: No Limitations - Ebola screening Have you traveled outside of the country in the last 21 days: No Have you had contact with anyone from an Ebola affected area: No Have you been sick,other than usual withdrawal symptoms: No - Review of Systems Constitutional: Chills, Diaphoresis, Loss of Appetite, Night Sweats EENT: reports: Blurred Vision (RIGHT EYE BLURRINESS- TRUAMA AT YOUNG AGE.), Dental Problems (MISSING TEETH/EXTRACTIONS.) Respiratory: reports: Shortness of Breath, Wheezing (HX ASTHMA) GI: reports: Constipated (SOMETIMES) : reports: No Symptoms Reported Musculoskeletal: reports: Joint Pain, Other (PSORIATIC ARTHRITIS) Integumentary: reports: Rash (HX PSORIATIC ARTHRITIS) Neuro: reports: Seizure (LAST EPISODE A CHILD), Tremors, Unsteady Gait, Dizziness Endocrine: reports: No Symptoms Reported Hematology: reports: No Symptoms Reported Psychiatric: reports: Orientated x3, Anxious, Depressed Other Systems: Reviewed and Negative Patient History - Patient Medical History Hx Anemia: No Hx Asthma: Yes (MDI) Hx Chronic Obstructive Pulmonary Disease (COPD): No Hx Cancer: No Hx Cardiac Disorders: No Hx Congestive Heart Failure: No Hx Hypertension: No Hx Hypercholesterolemia: No Hx Pacemaker: No HX Cerebrovascular Accident: No Hx Seizures: Yes (as a child.) Hx Dementia: No Hx Diabetes: No Hx Gastrointestinal Disorders: No Hx Liver Disease: No Hx Genitourinary Disorders: No Hx Sexually Transmitted Disorders: No Hx Renal Disease (ESRD): No Hx Thyroid Disease: No Hx Human Immunodeficiency Virus (HIV): No (NEGATIVE HX) Hx Hepatitis C: No Hx Depression: Yes (ON MED) Hx Suicide Attempt: Yes (Pt states he tried to jump off bridge 1 year ago but was stopped by lodging house keeper.) Hx Bipolar Disorder: Yes (ON MEDS ) Hx Schizophrenia: Yes Other Medical History: DENIES CURRENT S/H IDEATIONS TODAY. - Patient Surgical History Past Surgical History: No Hx Neurologic Surgery: No Hx Cataract Extraction: No Hx Cardiac Surgery: No Hx Lung Surgery: No Hx Breast Surgery: No Hx Breast Biopsy: No Hx Abdominal Surgery: No Hx Appendectomy: No Hx Cholecystectomy: No Hx Genitourinary Surgery: No Hx Section: No Hx Orthopedic Surgery: No Anesthesia Reaction: No - PPD History Previous Implant?: Yes Documented Results: Negative w/proof Implanted On Prior [facility] Admission?: Yes Date: 08/04/16 Results: 0 MM PPD to be Administered?: Yes - Reproductive History Patient is a Female of Child Bearing Age (11 -55 yrs old): No (MALE) - Smoking Cessation Smoking history: Current every day smoker Have you smoked in the past 12 months: Yes Aproximately how many cigarettes per day: 20 Cigars Per Day: 0 Hx Chewing Tobacco Use: No Initiated information on smoking cessation: Yes 'Breaking Loose' booklet given: 11/01/17 - Substance & Tx. History Hx Alcohol Use: Yes (BEER/LIQUOUR) Hx Substance Use: Yes (PCP) Substance Use Type: Alcohol Hx Substance Use Treatment: Yes (LAST TX AT [facility]-DETOX) - Substances Abused Alcohol Route: Oral Frequency: Daily Amount used: 6 PK BEER Age of first use: 13 Date of Last Use: 10/31/17 PCP Route: Smoking Frequency: Daily Amount used: 2-10 BAGS Age of first use: 15 Date of Last Use: 10/31/17 Family Disease History - Family Disease History Family Disease History: Respiratory: Brother (3 living - one with asthma), Sister (two living - one with asthma), Other: Father (living, hx drugs and etoh) , Mother (living, hx GERD), Son (one age 12 ), Daughter (two ages 10 and 5 - healthy) Admission Physical Exam BHS - Vital Signs Vital Signs: Vital Signs - 24 hr 11/01/17 09:48 Temperature 97 F L Pulse Rate 64 Respiratory 20 Rate Blood Pressure 137/96 - Physical General Appearance: Yes: Moderate Distress HEENTM: Yes: EOMI, Normocephalic, HAL, Nasal Congestion Respiratory: Yes: Chest Non-Tender, Lungs Clear, No Respiratory Distress Neck: Yes: No masses,lesions,Nodules, Supple, Trachea in good position Breast: Yes: Breast Exam Deferred Cardiology: Yes: Regular Rhythm, Regular Rate, S1, S2 Abdominal: Yes: Normal Bowel Sounds, Non Tender, Soft Genitourinary: Yes: Other (N/C) Back: Yes: Within Normal Limits Musculoskeletal: Yes: full range of Motion, Gait Steady Extremities: Yes: Normal Range of Motion, Non-Tender Neurological: Yes: hybrid car mechanic II-XII NML intact, Fully Oriented, Alert, Motor Strength 5/5 Integumentary: Yes: Dry, Warm Lymphatic: Yes: Within Normal Limits - Diagnostic (1) Alcohol dependence with uncomplicated withdrawal Current Visit: Yes Status: Acute (2) Asthma Current Visit: Yes Status: Chronic Qualifiers: Asthma severity: mild intermittent Asthma complication type: uncomplicated (3) Nicotine dependence Current Visit: Yes Status: Acute Qualifiers: Nicotine product type: cigarettes Substance use status: in withdrawal Qualified Code(s): F17.213 - Nicotine dependence, cigarettes, with withdrawal (4) PCP dependence Current Visit: Yes Status: Acute (5) Psoriatic arthritis Current Visit: Yes Status: Chronic Cleared for Admission [facility] - Detox or Rehab [facility] Level of Care: Medically Managed Detox Regimen/Protocol: Librium [facility] Breath Alcohol Content Breath Alcohol Content: 0 Urine Drug Screen - Results Drug Screen Negative: No Urine Drug Screen Results: PCP-Phencyclidine
[2017-11-01] MEDS ORDERED: guaiFENesin/D-METHORPHAN HB 10 ML UNIT-DOSE CUPS PO PRN (13:48)
[2017-11-01] MEDS ORDERED: MAGNESIUM CITRATE 300 ML BOTTLE PO PRN (13:48)
[2017-11-01] MEDS ORDERED: LOPERAMIDE HCL 2 MG CAPSULE PO PRN (13:48)
[2017-11-01] MEDS ORDERED: ACETAMINOPHEN 325 MG TABLET (FP) PO PRN (13:48)
[2017-11-01] MEDS ORDERED: NICOTINE POLACRILEX 4 MG GUM BUC PRN (13:48)
[2017-11-01] MEDS ORDERED: MAGNESIUM HYDROX 2400MG/30ML ORAL SUSPENSION 30 ML CUP PO PRN (13:48)
[2017-11-01] MEDS ORDERED: MENTHOL/PHENOL 1 EACH UD MM PRN (13:48)
[2017-11-01] MEDS: BETAMETHASONE VALERATE 0.1% CREAM 15 GM TUBE TP SCH (15:18)
[2017-11-01] MEDS: KETOCONAZOLE 2 % SHAMPOO 120 ML BOTTLE TP SCH (15:18)
[2017-11-01] MEDS: AMMONIUM LACTATE 12% LOTION 225 GM BOTTLE TP SCH ×2 (15:18→22:28)
[2017-11-01] MEDS: ALBUTEROL SO4 18 GM HFA INHALER IH SCH ×3 (15:19→22:29)
[2017-11-01] MEDS: chlordiazePOXIDE HCL 25 MG CAPSULE PO PRN (15:19)
[2017-11-01] MEDS: NICOTINE 21 MG/24 HOURS TOPICAL PATCH TD SCH (15:21)
[2017-11-01 15:43] LABS: HEMATOCRIT 46.1 % (35.4-49); HEMOGLOBIN 15.1 GM/dL (11.7-16.9); MCH 30.9 pg (25.7-33.7); MCHC 32.7 g/dl (32.0-35.9); MEAN CELL VOLUME 94.6 fl (80-96); MEAN PLT VOLUME 10.2 fl (7.5-11.1); PLATELET COUNT 255 K/MM3 (134-434); RBC 4.87 M/mm3 (4.00-5.60); RDW 13.9 % (11.9-15.9); WHITE BLOOD COUNT 8.2 K/mm3 (4.0-10.0)
[2017-11-01 15:47] LABS: ALK PHOS 80 U/L (45-117); ANION GAP 7 (8-16); BILIRUBIN,TOTAL 0.7 mg/dL (0.2-1.0); BLOOD UREA NITROGEN 12 mg/dL (7-18); CALCIUM 8.7 mg/dL (8.5-10.1); CHLORIDE 102 mmol/L (98-107); CO2 31 mmol/L (21-32); CREATININE 0.9 mg/dL (0.7-1.3); GLUCOSE,RANDOM 84 mg/dL (74-106); POTASSIUM 4.4 mmol/L (3.5-5.1); SGOT/AST 13 U/L (15-37); SGPT/ALT 25 U/L (12-78); SODIUM 140 mmol/L (136-145); TOT PROT 7.7 g/dl (6.4-8.2)
[2017-11-01] MEDS: chlordiazePOXIDE HCL 25 MG CAPSULE PO SCH ×2 (17:16→22:30)
[2017-11-01] MEDS: diphenhydrAMINE HCL 25 MG CAPSULE (FP) PO PRN (20:19)
[2017-11-01] MEDS: COLLOIDAL OATMEAL 1 BAR EACH TP PRN (22:28)
[2017-11-01] MEDS: PATIENT'S OWN MEDICATION (NON-FORMULARY) (Apremilast [Otezla] 30 MG) PO SCH (22:29)
[2017-11-01] MEDS: THIAMINE HCL 100 MG TABLET (FP) PO SCH (22:29)
[2017-11-01 23:33] LABS: URINE APPEARANCE CLEAR; URINE BILIRUBIN NEGATIVE (NEGATIVE); URINE BLOOD NEGATIVE (NEGATIVE); URINE COLOR YELLOW; URINE GLUCOSE (UA) NEGATIVE (NEGATIVE); URINE KETONE NEGATIVE (NEGATIVE); URINE LEUK ESTERASE NEGATIVE (NEGATIVE); URINE NITRITE NEGATIVE (NEGATIVE); URINE PROTEIN NEGATIVE (NEGATIVE); URINE UROBILINOGEN NEGATIVE mg/dL (0.2-1.0)
[2017-11-02] MEDS: ALBUTEROL SO4 18 GM HFA INHALER IH SCH ×6 (02:05→22:26)
[2017-11-02] MEDS: chlordiazePOXIDE HCL 25 MG CAPSULE PO SCH ×4 (05:47→22:25)
[2017-11-02] MEDS: diphenhydrAMINE HCL 25 MG CAPSULE (FP) PO PRN (05:50)
--- NOTE | 2017-11-02 08:25 | CONSULT ---
[facility] Psychiatric Consult - Data Date of interview: 11/02/17 Admission source: [facility] Identifying data: This is 32 years old male with history of Schizophrenia, history of psychiatric hospitalization , intoxicated with: Alcohol, PCP, Nicotine, Substance Abuse History: - Smoking Cessation. Smoking history: Current every day smoker. Have you smoked in the past 12 months: Yes. Aproximately how many cigarettes per day: 20. Cigars Per Day: 0. Hx Chewing Tobacco Use: No. Initiated information on smoking cessation: Yes. 'Breaking Loose' booklet given : 11/01/17. - Substance & Tx. History. Hx Alcohol Use: Yes (BEER/LIQUOUR). Hx Substance Use: Yes (PCP). Substance Use Type: Alcohol. Hx Substance Use Treatment: Yes (LAST TX AT [facility]-DETOX). - Substances Abused. Alcohol. Route: Oral. Frequency: Daily. Amount used: 6 PK BEER. Age of first use: 13. Date of Last Use: 10/31/17. PCP. Route: Smoking. Frequency: Daily. Amount used: 2-10 BAGS. Age of first use: 15. Date of Last Use: 10/31/17 Medical History: Asthma, Arthritis history Psychiatric History: [place] history of Schizophrenia, preoccupied with medications, reports taking prior to admission: Paxil 40mg poqd. Ambien 10mg po qhs. Depakote 500mg po qhs. Reports most recent psychiatric admission on for 2 weeks at [facility] due to psychotic condition for safety. Seroquel 200mg po qhs. Vistaril 50mg po tid Physical/Sexual Abuse/Trauma History: Denies Additional Comment: Paxil 40mg poqd. Ambien 10mg po qhs. Depakote 500mg po qhs. Seroquel 200mg po qhs. Vistaril 50mg po tid Mental Status Exam - Mental Status Exam Alert and Oriented to: Person Cognitive Function: Fair Patient Appearance: Unkempt Mood: Anxious Affect: Constricted Patient Behavior: Cooperative Speech Pattern: Excessive, Pressured Voice Loudness: Mildly Loud Thought Process: Goal Oriented Thought Disorder: Being Controlled Hallucinations: Denies Suicidal Ideation: Denies Homicidal Ideation: Denies Insight/Judgement: Fair Sleep: Difficulty falling asleep Appetite: Fair Muscle strength/Tone: Mild Hypertonicity Gait/Station: Normal Additional Comments: Paxil 40mg poqd. Ambien 10mg po qhs. Depakote 500mg po qhs. Seroquel 200mg po qhs. Vistaril 50mg po tid Psychiatric Findings - Problem List ([place] 1, 2,3) (1) Alcohol dependence with uncomplicated withdrawal Current Visit: Yes Status: Acute (2) Nicotine dependence Current Visit: Yes Status: Acute Qualifiers: Nicotine product type: cigarettes Substance use status: in withdrawal Qualified Code(s): F17.213 - Nicotine dependence, cigarettes, with withdrawal (3) PCP dependence Current Visit: Yes Status: Acute (4) Marijuana dependence Current Visit: No Status: Acute (5) Schizoaffective disorder Current Visit: No Status: Acute Qualifiers: Schizoaffective disorder type: unspecified Qualified Code(s): F25.9 - Schizoaffective disorder, unspecified (6) Substance-induced sleep disorder Current Visit: No Status: Acute (7) Cocaine dependence, uncomplicated Current Visit: No Status: Chronic (8) Schizophrenia Current Visit: No Status: Chronic Qualifiers: Schizophrenia type: disorganized schizophrenia Qualified Code(s): F20.1 - Disorganized schizophrenia (9) Substance induced mood disorder Current Visit: No Status: Suspected - Initial Treatment Plan Initial Treatment Plan: Paxil 40mg poqd. Ambien 10mg po qhs. Depakote 500mg po qhs. Seroquel 200mg po qhs. Vistaril 50mg po tid. Depakote blood level
[2017-11-02] MEDS: PATIENT'S OWN MEDICATION (NON-FORMULARY) (Apremilast [Otezla] 30 MG) PO SCH ×2 (10:21→22:25)
[2017-11-02] MEDS: PRENATAL VITAMINS W/ FOLIC ACID TABLET (FP) PO SCH (10:22)
[2017-11-02] MEDS: PARoxetine HCL 20 MG TABLET (FP) PO SCH (10:22)
[2017-11-02] MEDS: BETAMETHASONE VALERATE 0.1% CREAM 15 GM TUBE TP SCH (10:24)
[2017-11-02] MEDS: AMMONIUM LACTATE 12% LOTION 225 GM BOTTLE TP SCH ×2 (10:24→22:26)
[2017-11-02] MEDS: NICOTINE 21 MG/24 HOURS TOPICAL PATCH TD SCH (10:24)
--- NOTE | 2017-11-02 12:37 | EKG ---
Test Reason : Blood Pressure : / mmHG Vent. Rate : 065 BPM Atrial Rate : 065 BPM P-R Int : 152 ms QRS Dur : 098 ms QT Int : 392 ms P-R-T Axes : 049 058 036 degrees QTc Int : 407 ms NORMAL SINUS RHYTHM NORMAL ECG WHEN COMPARED WITH ECG OF 08-JUL-2017 17:26, PREMATURE VENTRICULAR COMPLEXES ARE NO LONGER PRESENT QT HAS SHORTENED Confirmed by HERON LOPEZ, ERWIN ([id number]) on 11/02/2017 12:37:42 PM Referred By: Confirmed By:ERWIN SHELBY MD
[2017-11-02] MEDS: hydrOXYzine PAMOATE 50 MG CAPSULE (FP) PO SCH ×2 (14:26→22:25)
[2017-11-02] MEDS: chlordiazePOXIDE HCL 25 MG CAPSULE PO PRN (14:27)
--- NOTE | 2017-11-02 14:57 | PN ---
BHS COWS - Scale Resting Pulse: 1= [place] 81-100 Sweatin=Flushed/Facial Moisture Restless Observation: 1= Difficult to Sit Still Pupil Size: 0= Normal to Room Light Bone or Joint Aches: 2= Severe Diffuse Aches Runny Nose/ Eye Tearin= Runny Nose/Eyes GI Upset > 30mins: 2= Nausea/Diarrhea Tremor Observation of Outstretched Hands: 2= Slight Tremor Visible Yawning Observation: 1= 1-2x During Session Anxiety or Irritability: 1=Feels Anxious/Irritable Goose Flesh Skin: 3=Piloerection COWS Score: 17 BHS Progress Note (SOAP) Subjective: pruritus, interrupted sleep, body aches, sweats, chills, anxious Objective: 11/02/17 14:55 Vital Signs Temperature 97.9 F 11/02/17 14:28 Pulse Rate 83 11/02/17 14:28 Respiratory Rate 20 11/02/17 14:28 Blood Pressure 99/62 11/02/17 14:28 O2 Sat by Pulse Oximetry (%) Laboratory Last Values WBC 8.2 K/mm3 (4.0-10.0) 11/01/17 13:40 RBC 4.87 M/mm3 (4.00-5.60) 11/01/17 13:40 Hgb 15.1 GM/dL (11.7-16.9) 11/01/17 13:40 Hct 46.1 % (35.4-49) 11/01/17 13:40 MCV 94.6 fl (80-96) 11/01/17 13:40 MCH 30.9 pg (25.7-33.7) 11/01/17 13:40 MCHC 32.7 g/dl (32.0-35.9) 11/01/17 13:40 RDW 13.9 % (11.9-15.9) 11/01/17 13:40 Plt Count 255 K/MM3 (134-434) 11/01/17 13:40 MPV 10.2 fl (7.5-11.1) 11/01/17 13:40 Sodium 140 mmol/L (136-145) 11/01/17 13:40 Potassium 4.4 mmol/L (3.5-5.1) 11/01/17 13:40 Chloride 102 mmol/L (98-107) 11/01/17 13:40 Carbon Dioxide 31 mmol/L (21-32) 11/01/17 13:40 Anion Gap 7 (8-16) L 11/01/17 13:40 BUN 12 mg/dL (7-18) D 11/01/17 13:40 Creatinine 0.9 mg/dL (0.7-1.3) 11/01/17 13:40 Creat Clearance w eGFR > 60 (>60) 11/01/17 13:40 Random Glucose 84 mg/dL (74-106) 11/01/17 13:40 Calcium 8.7 mg/dL (8.5-10.1) 11/01/17 13:40 Total Bilirubin 0.7 mg/dL (0.2-1.0) 11/01/17 13:40 AST 13 U/L (15-37) L 11/01/17 13:40 ALT 25 U/L (12-78) 11/01/17 13:40 Alkaline Phosphatase 80 U/L (45-117) D 11/01/17 13:40 Total Protein 7.7 g/dl (6.4-8.2) D 11/01/17 13:40 Albumin 4.0 g/dl (3.4-5.0) D 11/01/17 13:40 Urine Color Yellow 11/01/17 20:49 Urine Appearance Clear 11/01/17 20:49 Urine pH 6.0 (5.0-8.0) 11/01/17 20:49 Ur Specific [place] 1.023 (1.001-1.035) 11/01/17 20:49 Urine Protein Negative (NEGATIVE) 11/01/17 20:49 Urine Glucose (UA) Negative (NEGATIVE) 11/01/17 20:49 Urine Ketones Negative (NEGATIVE) 11/01/17 20:49 Urine Blood Negative (NEGATIVE) 11/01/17 20:49 Urine Nitrite Negative (NEGATIVE) 11/01/17 20:49 Urine Bilirubin Negative (NEGATIVE) 11/01/17 20:49 Urine Urobilinogen Negative mg/dL (0.2-1.0) 11/01/17 20:49 Ur Leukocyte Esterase Negative (NEGATIVE) 11/01/17 20:49 Labs noted Assessment: 11/02/17 14:55 AOx3 Ambulatory No distress skin excoriation both lower extremities Plan: continue detox increase fluids
[2017-11-02] MEDS: THIAMINE HCL 100 MG TABLET (FP) PO SCH (22:25)
[2017-11-02] MEDS: QUEtiapine FUMARATE 200 MG TABLET PO SCH (22:25)
[2017-11-02] MEDS: ZOLPIDEM TARTRATE 10 MG TABLET (PARK CARE ONLY) PO PRN (22:25)
[2017-11-02] MEDS: DIVALPROEX SODIUM 500 MG TABLET E.C. PO SCH (22:25)
[2017-11-03] MEDS: chlordiazePOXIDE HCL 25 MG CAPSULE PO SCH ×2 (05:02→10:23)
[2017-11-03] MEDS: hydrOXYzine PAMOATE 50 MG CAPSULE (FP) PO SCH ×3 (05:02→22:30)
[2017-11-03] MEDS: IBUPROFEN 400 MG TABLET (FP) PO PRN (07:10)
[2017-11-03] MEDS: ALBUTEROL SO4 18 GM HFA INHALER IH SCH ×2 (07:16→07:19)
[2017-11-03] MEDS ORDERED: ALBUTEROL SO4 18 GM HFA INHALER IH PRN (09:17)
--- NOTE | 2017-11-03 09:56 | PN ---
BHS COWS - Scale Resting Pulse: 0= [place] 80 or Below Sweatin= Chills/Flushing Restless Observation: 1= Difficult to Sit Still Pupil Size: 0= Normal to Room Light Bone or Joint Aches: 2= Severe Diffuse Aches Runny Nose/ Eye Tearin= Nasal Congestion GI Upset > 30mins: 2= Nausea/Diarrhea Tremor Observation of Outstretched Hands: 2= Slight Tremor Visible Yawning Observation: 2= >3x During Session Anxiety or Irritability: 2=Irritable/Anxious Goose Flesh Skin: 0=Smooth Skin COWS Score: 13 BHS Progress Note (SOAP) Subjective: agitation sweats body aches dry skin Objective: 11/03/17 10:09 Vital Signs Temperature 97.8 F 11/03/17 07:33 Pulse Rate 95 H 11/03/17 07:33 Respiratory Rate 18 11/03/17 07:33 Blood Pressure 127/73 11/03/17 07:33 O2 Sat by Pulse Oximetry (%) Laboratory Tests 11/01/17 11/01/17 11/01/17 13:40 13:40 13:40 WBC 8.2 RBC 4.87 Hgb 15.1 Hct 46.1 MCV 94.6 MCH 30.9 MCHC 32.7 RDW 13.9 Plt Count 255 MPV 10.2 Sodium 140 Potassium 4.4 Chloride 102 Carbon Dioxide 31 Anion Gap 7 L BUN 12 D Creatinine 0.9 Creat Clearance w eGFR > 60 Random Glucose 84 Calcium 8.7 Total Bilirubin 0.7 AST 13 L ALT 25 Alkaline Phosphatase 80 D Total Protein 7.7 D Albumin 4.0 D Urine Color Urine Appearance Urine pH Ur Specific [place] Urine Protein Urine Glucose (UA) Urine Ketones Urine Blood Urine Nitrite Urine Bilirubin Urine Urobilinogen Ur Leukocyte Esterase RPR Titer Nonreactive 11/01/17 20:49 WBC RBC Hgb Hct MCV MCH MCHC RDW Plt Count MPV Sodium Potassium Chloride Carbon Dioxide Anion Gap BUN Creatinine Creat Clearance w eGFR Random Glucose Calcium Total Bilirubin AST ALT Alkaline Phosphatase Total Protein Albumin Urine Color Yellow Urine Appearance Clear Urine pH 6.0 Ur Specific [place] 1.023 Urine Protein Negative Urine Glucose (UA) Negative Urine Ketones Negative Urine Blood Negative Urine Nitrite Negative Urine Bilirubin Negative Urine Urobilinogen Negative Ur Leukocyte Esterase Negative RPR Titer aaox3 ambulating no acute distress Assessment: 11/03/17 10:10 withdrawal sx Plan: continue detox increase fluids water pitcher
[2017-11-03] MEDS: PARoxetine HCL 20 MG TABLET (FP) PO SCH (10:23)
[2017-11-03] MEDS: NICOTINE 21 MG/24 HOURS TOPICAL PATCH TD SCH (10:23)
[2017-11-03] MEDS: PRENATAL VITAMINS W/ FOLIC ACID TABLET (FP) PO SCH (10:23)
[2017-11-03] MEDS: PATIENT'S OWN MEDICATION (NON-FORMULARY) (Apremilast [Otezla] 30 MG) PO SCH ×2 (10:23→22:31)
[2017-11-03] MEDS: AMMONIUM LACTATE 12% LOTION 225 GM BOTTLE TP SCH ×2 (10:24→22:33)
[2017-11-03] MEDS: BETAMETHASONE VALERATE 0.1% CREAM 15 GM TUBE TP SCH (10:24)
[2017-11-03] MEDS: chlordiazePOXIDE 5 MG CAPSULE PO SCH ×2 (17:36→22:30)
[2017-11-03] MEDS: COLLOIDAL OATMEAL 1 BAR EACH TP PRN (20:18)
[2017-11-03] MEDS: QUEtiapine FUMARATE 200 MG TABLET PO SCH (22:31)
[2017-11-03] MEDS: DIVALPROEX SODIUM 500 MG TABLET E.C. PO SCH (22:31)
[2017-11-03] MEDS: THIAMINE HCL 100 MG TABLET (FP) PO SCH (22:34)
[2017-11-04] MEDS: hydrOXYzine PAMOATE 50 MG CAPSULE (FP) PO SCH ×3 (05:39→22:24)
[2017-11-04] MEDS: chlordiazePOXIDE 5 MG CAPSULE PO SCH ×2 (05:40→10:08)
[2017-11-04] MEDS: P-EPHED 60MG/TRIPROLIDI 2.5MG TABLET PO PRN ×2 (05:44→14:08)
[2017-11-04] MEDS: PRENATAL VITAMINS W/ FOLIC ACID TABLET (FP) PO SCH (10:07)
[2017-11-04] MEDS: PARoxetine HCL 20 MG TABLET (FP) PO SCH (10:07)
[2017-11-04] MEDS: PATIENT'S OWN MEDICATION (NON-FORMULARY) (Apremilast [Otezla] 30 MG) PO SCH ×2 (10:07→22:25)
[2017-11-04] MEDS: NICOTINE 21 MG/24 HOURS TOPICAL PATCH TD SCH (10:08)
[2017-11-04] MEDS: BETAMETHASONE VALERATE 0.1% CREAM 15 GM TUBE TP SCH (10:08)
[2017-11-04] MEDS: AMMONIUM LACTATE 12% LOTION 225 GM BOTTLE TP SCH ×2 (10:08→22:25)
[2017-11-04] MEDS: diphenhydrAMINE HCL 50 MG CAPSULE PO PRN ×2 (10:13→17:41)
--- NOTE | 2017-11-04 10:51 | PN ---
Psychiatric Progress Note Vital Signs: Vital Signs Period Temp Pulse Resp BP Sys/Betancur Pulse Ox Last 24 Hr 97.3 F-99.3 F 75-95 18-18 120-143/61-87 Date of Session: 11/04/17 Chief Complaint:: "I was confused about why i have ambien and seroquel." HPI: Pt. admitted to [facility] detox for PCP and alcohol dependence. ROS: Unremarkable Current Medications: Active Medications Generic Name Dose Route Start Last Admin Trade Name Freq PRN Reason Stop Dose Admin Acetaminophen 650 mg 11/01/17 13:48 Tylenol - PO Q4H PRN FEVER Al Hydroxide/Mg Hydroxide 30 ml 11/01/17 13:48 Mylanta Oral Suspension - PO Q6H PRN DYSPEPSIA Albuterol Sulfate 2 puff 11/03/17 09:17 11/04/17 10:09 Ventolin Hfa Inhaler - IH 2 puff Q4H PRN Administration ASTHMA Betamethasone Valerate 1 applic 11/01/17 14:00 11/04/17 10:08 Valisone 0.1% Cream - TP 1 applic DAILY SAMANTHA Administration Chlordiazepoxide HCl 15 mg 11/03/17 17:00 11/04/17 10:08 Librium - PO 11/04/17 11:01 15 mg [id number] SAMANTHA Administration Chlordiazepoxide HCl 25 mg 11/01/17 13:48 11/02/17 14:27 Librium - PO 11/04/17 13:47 25 mg Q4H PRN Administration WITHDRAWAL(CONT SUBST) Chlordiazepoxide HCl 10 mg 11/04/17 17:00 Librium - PO 11/05/17 11:01 [id number]-HOA SAMANTHA Colloidal Oatmeal 1 applic 11/01/17 15:33 11/03/17 20:18 Aveeno Soap - TP 1 applic DAILY PRN Administration HYGEINE Diphenhydramine HCl 50 mg 11/02/17 10:57 11/04/17 10:13 Benadryl - PO 50 mg Q6H PRN Administration FOR ITCHING Divalproex Sodium 500 mg 11/02/17 22:00 11/03/17 22:31 Depakote - PO 500 mg HS SAMANTHA Administration Eucalyptus/Menthol/Phenol/Sorbitol 1 each 11/01/17 13:48 Cepastat Lozenge - MM Q4H PRN SORE THROAT Guaifenesin 10 ml 11/01/17 13:48 Robitussin Dm - PO Q6H PRN COUGH Hydroxyzine Pamoate 50 mg 11/02/17 14:00 11/04/17 05:39 Vistaril - PO 50 mg TID SAMANTHA Administration Ibuprofen 400 mg 11/01/17 13:48 11/03/17 07:10 Motrin - PO 400 mg Q6H PRN Administration PAIN LEVEL 4-6 Ketoconazole 1 applic 11/01/17 14:00 11/01/17 15:18 Nizoral 2% Shampoo - TP 1 applic Q72H SAMANTHA Administration Lactic Acid 1 applic 11/01/17 14:00 11/04/17 10:08 Lac-Hydrin 12 TP 1 applic BID SAMANTHA Administration Loperamide HCl 4 mg 11/01/17 13:48 Imodium - PO Q6H PRN DIARRHEA Magnesium Citrate 300 ml 11/01/17 13:48 Citroma - PO Q48H PRN CONSTIPATION Magnesium Hydroxide 30 ml 11/01/17 13:48 Milk Of Magnesia - PO DAILY PRN CONSTIPATION Nicotine 21 mg 11/01/17 14:00 11/04/17 10:08 Nicoderm Patch - TD 21 mg DAILY SAMANTHA Administration Nicotine Polacrilex 4 mg 11/01/17 13:48 11/02/17 07:48 Nicorette Gum - BUC 4 mg Q2H PRN Administration NICOTINE REPLACEMENT RX Non-Formulary Medication 30 mg 11/01/17 22:00 11/04/17 10:07 Apremilast [Otezla] PO 30 mg BID SAMANTHA Administration Paroxetine HCl 40 mg 11/02/17 10:00 11/04/17 10:07 Paxil - PO 40 mg DAILY SAMANTHA Administration Multivit/Folic Acid/Iron 1 tab 11/02/17 10:00 11/04/17 10:07 Vitamins (Sjr) - PO 1 tab DAILY SAMANTHA Administration Pseudoephedrine/Triprolidine 1 combo 11/01/17 13:48 11/04/17 05:44 Actifed - PO 1 combo TID PRN Administration NASAL CONGESTION Quetiapine Fumarate 200 mg 11/02/17 22:00 11/03/17 22:31 Seroquel - PO 200 mg HS SAMANTHA Administration Thiamine HCl 100 mg 11/01/17 22:00 11/03/17 22:34 Vitamin B1 - PO 100 mg HS SAMANTHA Administration Zolpidem Tartrate 10 mg 11/02/17 22:00 11/02/17 22:25 Ambien - PO 11/05/17 21:59 10 mg HS PRN Administration Medication(s) Change(s): No Current Side Effect: No Lab tests ordered: No Lab tests reviewed: Yes Provider note:: Staff Air Tactical Officer approached patient concerning psychiatric reconsultation. Pt. requesting reasons as to why he is taking both ambien and seroquel. Psychopharmacotherapy provided and explained the importance of continuing his seroquel dose which is prescribed to treat his diagnosis of bipolar disorder and schizophrenia. Psychoeducation and sleep hygiene provided. Pt. satisified and receptive to feedback. Will continue to monitor. Total face to face time:: 15 Mental Status Exam - Mental Status Exam Alert and Oriented to: Time, Place, Person Cognitive Function: Good Patient Appearance: Well Groomed Mood: Hopeful Affect: Appropriate Patient Behavior: Cooperative Speech Pattern: Appropriate Voice Loudness: Normal Thought Process: Intact Hallucinations: Denies Suicidal Ideation: Denies Homicidal Ideation: Denies Insight/Judgement: Poor Sleep: Fair Appetite: Good Muscle strength/Tone: Normal Gait/Station: Normal Psychiatric Treatment Plan - Problem List (1) Alcohol dependence with uncomplicated withdrawal Current Visit: Yes (2) Nicotine dependence Current Visit: Yes Qualifiers: Nicotine product type: cigarettes Substance use status: in withdrawal Qualified Code(s): F17.213 - Nicotine dependence, cigarettes, with withdrawal (3) PCP dependence Current Visit: Yes (4) Schizophrenia Current Visit: Yes Qualifiers: Schizophrenia type: disorganized schizophrenia Qualified Code(s): F20.1 - Disorganized schizophrenia (5) Substance-induced sleep disorder Current Visit: Yes (6) Bipolar disorder Current Visit: Yes
[2017-11-04] MEDS: MAG HYDROX/AL HYDROX/SIMETH 30 ML UNIT-DOSE CUP PO PRN ×2 (12:48→19:49)
--- NOTE | 2017-11-04 13:16 | PN ---
BHS Progress Note (SOAP) Subjective: Stuffy nose, chills, interrupted sleep, anxious Objective: 11/04/17 13:14 Last Vital Signs Temp Pulse Resp BP Pulse Ox 97.9 F 82 18 126/84 11/04/17 10:27 11/04/17 10:27 11/04/17 10:27 11/04/17 10:27 Laboratory Last Values WBC 8.2 K/mm3 (4.0-10.0) 11/01/17 13:40 RBC 4.87 M/mm3 (4.00-5.60) 11/01/17 13:40 Hgb 15.1 GM/dL (11.7-16.9) 11/01/17 13:40 Hct 46.1 % (35.4-49) 11/01/17 13:40 MCV 94.6 fl (80-96) 11/01/17 13:40 MCH 30.9 pg (25.7-33.7) 11/01/17 13:40 MCHC 32.7 g/dl (32.0-35.9) 11/01/17 13:40 RDW 13.9 % (11.9-15.9) 11/01/17 13:40 Plt Count 255 K/MM3 (134-434) 11/01/17 13:40 MPV 10.2 fl (7.5-11.1) 11/01/17 13:40 Sodium 140 mmol/L (136-145) 11/01/17 13:40 Potassium 4.4 mmol/L (3.5-5.1) 11/01/17 13:40 Chloride 102 mmol/L (98-107) 11/01/17 13:40 Carbon Dioxide 31 mmol/L (21-32) 11/01/17 13:40 Anion Gap 7 (8-16) L 11/01/17 13:40 BUN 12 mg/dL (7-18) D 11/01/17 13:40 Creatinine 0.9 mg/dL (0.7-1.3) 11/01/17 13:40 Creat Clearance w eGFR > 60 (>60) 11/01/17 13:40 Random Glucose 84 mg/dL (74-106) 11/01/17 13:40 Calcium 8.7 mg/dL (8.5-10.1) 11/01/17 13:40 Total Bilirubin 0.7 mg/dL (0.2-1.0) 11/01/17 13:40 AST 13 U/L (15-37) L 11/01/17 13:40 ALT 25 U/L (12-78) 11/01/17 13:40 Alkaline Phosphatase 80 U/L (45-117) D 11/01/17 13:40 Total Protein 7.7 g/dl (6.4-8.2) D 11/01/17 13:40 Albumin 4.0 g/dl (3.4-5.0) D 11/01/17 13:40 Urine Color Yellow 11/01/17 20:49 Urine Appearance Clear 11/01/17 20:49 Urine pH 6.0 (5.0-8.0) 11/01/17 20:49 Ur Specific [place] 1.023 (1.001-1.035) 11/01/17 20:49 Urine Protein Negative (NEGATIVE) 11/01/17 20:49 Urine Glucose (UA) Negative (NEGATIVE) 11/01/17 20:49 Urine Ketones Negative (NEGATIVE) 11/01/17 20:49 Urine Blood Negative (NEGATIVE) 11/01/17 20:49 Urine Nitrite Negative (NEGATIVE) 11/01/17 20:49 Urine Bilirubin Negative (NEGATIVE) 11/01/17 20:49 Urine Urobilinogen Negative mg/dL (0.2-1.0) 11/01/17 20:49 Ur Leukocyte Esterase Negative (NEGATIVE) 11/01/17 20:49 Valproic Acid 24.501 ug/ml (50-100) L 11/03/17 07:00 RPR Titer Nonreactive (NONREACTIVE) 11/01/17 13:40 Labs noted Assessment: 11/04/17 13:16 AOx3 ambulating no distress Plan: Continue detox increase fluids
[2017-11-04] MEDS: chlordiazePOXIDE HCL 10 MG CAPSULE PO SCH ×2 (17:39→22:24)
[2017-11-04] MEDS: IBUPROFEN 400 MG TABLET (FP) PO PRN (20:13)
[2017-11-04] MEDS: THIAMINE HCL 100 MG TABLET (FP) PO SCH (22:24)
[2017-11-04] MEDS: QUEtiapine FUMARATE 200 MG TABLET PO SCH (22:24)
[2017-11-04] MEDS: DIVALPROEX SODIUM 500 MG TABLET E.C. PO SCH (22:24)
[2017-11-04] MEDS: ZOLPIDEM TARTRATE 10 MG TABLET (PARK CARE ONLY) PO PRN (22:27)
[2017-11-05] MEDS: chlordiazePOXIDE HCL 10 MG CAPSULE PO SCH (05:38)
[2017-11-05] MEDS: hydrOXYzine PAMOATE 50 MG CAPSULE (FP) PO SCH (05:38)
[2017-11-05 06:21] VITALS: BP 103/51; PULSE 77; TEMP 97.5
[2017-11-05] MEDS: KETOCONAZOLE 2 % SHAMPOO 120 ML BOTTLE TP SCH (08:28)
[2017-11-05] MEDS: AMMONIUM LACTATE 12% LOTION 225 GM BOTTLE TP SCH (09:03)
[2017-11-05] MEDS: PATIENT'S OWN MEDICATION (NON-FORMULARY) (Apremilast [Otezla] 30 MG) PO SCH (09:03)
[2017-11-05] MEDS: PARoxetine HCL 20 MG TABLET (FP) PO SCH (09:03)
[2017-11-05] MEDS: NICOTINE 21 MG/24 HOURS TOPICAL PATCH TD SCH (09:03)
[2017-11-05] MEDS: PRENATAL VITAMINS W/ FOLIC ACID TABLET (FP) PO SCH (09:04)
[2017-11-05] MEDS: BETAMETHASONE VALERATE 0.1% CREAM 15 GM TUBE TP SCH (09:04)
--- NOTE | 2017-11-05 12:02 | DS ---
[facility] Detox Discharge Summary Admission Date: 11/01/17 Discharge Date: 11/05/17 - History Present History: Alcohol Dependence, Cannabis Dependence - Physical Exam Results Vital Signs: Vital Signs Temperature 97.5 F L 11/05/17 06:20 Pulse Rate 77 11/05/17 06:20 Respiratory Rate 18 11/05/17 06:20 Blood Pressure 103/51 11/05/17 06:20 O2 Sat by Pulse Oximetry (%) - Treatment Hospital Course: Detox Protocol Followed, Detoxed Safely, Responded well, Discharged Condition Good, Rehab Referral Accepted Patient has Accepted a Rehab Referral to: as per counselor arranged - Medication Discharge Medications: Ambulatory Orders Apremilast [Otezla] 30 mg PO BID #60 tablet 08/30/16 Ammonium Lactate Lotion [Lac-Hydrin 12] 1 applic TP BID #1 bottle 10/07/16 Betamethasone Valerate 45 gm TP DAILY 11/01/17 Ketoconazole 2% Shampoo [Nizoral 2% Shampoo -] 1 applic TP Q72H 11/01/17 Divalproex [Depakote -] 500 mg PO HS #30 tablet.ec 11/02/17 Hydroxyzine Pamoate [Vistaril -] 50 mg PO TID #90 capsule 11/02/17 Paroxetine HCl [Paxil] 40 mg PO DAILY #30 tablet 11/02/17 Quetiapine Fumarate [Seroquel -] 200 mg PO HS #30 tablet 11/02/17 Zolpidem Tartrate [Ambien] 10 mg PO HS #14 tablet MDD 10 11/02/17 Albuterol Sulfate Inhaler - [Ventolin HFA Inhaler -] 2 inh IH Q4H #1 inhaler - Diagnosis (1) Alcohol dependence with uncomplicated withdrawal Status: Acute (2) Nicotine dependence Status: Acute Qualifiers: Nicotine product type: cigarettes Substance use status: in withdrawal Qualified Code(s): F17.213 - Nicotine dependence, cigarettes, with withdrawal (3) Asthma Status: Chronic Qualifiers: Asthma severity: mild Asthma complication type: uncomplicated - AMA Did Patient Leave Against Medical Advice: No
== END 2017-11-05 09:29 | disposition home or self-care (01) | DRG 775 ==
LOC: YASAS 08:15 → Y6N 13:05
PROVIDERS: ADMIT Internal Medicine; ATTEND Internal Medicine
PROC: HZ2ZZZZ Detoxification Services for Substance Abuse Treatment (ICD-10-PCS; principal; 2017-11-01)
DX: F10.230 Alcohol dependence with withdrawal, uncomplicated (principal); F16.20 Hallucinogen dependence, uncomplicated; F17.210 Nicotine dependence, cigarettes, uncomplicated; F31.9 Bipolar disorder, unspecified; F25.9 Schizoaffective disorder, unspecified; F19.282 Other psychoactive substance dependence with psychoactive substance-induced sleep disorder; J45.909 Unspecified asthma, uncomplicated; J43.0 Unilateral pulmonary emphysema [MacLeod's syndrome]; L40.9 Psoriasis, unspecified; L40.50 Arthropathic psoriasis, unspecified; Z91.013 Allergy to seafood; Z91.5 Personal history of self-harm
CPT/HCPCS: 36415; 80053; 80164; 81003; 85027; 86593; 93005; 93010

== ENCOUNTER 2018-01-30 04:41 | Emergency (ER) | payer OTHER ==
[2018-01-30 05:07] VITALS: BP 125/78; PULSE 78; TEMP 98; BMI 31.9
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
[2018-01-30 05:53] LABS: BASO % 0.6 % (0-2.0); EOS % 3.2 % (0-4.5); HEMATOCRIT 36.7 % (35.4-49); HEMOGLOBIN 12.4 GM/dL (11.7-16.9); LYMPH % 14.8 % (8-40); MCH 32.4 pg (25.7-33.7); MCHC 33.6 g/dl (32.0-35.9); MEAN CELL VOLUME 96.4 fl (80-96); MEAN PLT VOLUME 9.9 fl (7.5-11.1); MONO % 8.6 % (3.8-10.2); NEUT % 72.8 % (42.8-82.8); PLATELET COUNT 171 K/MM3 (134-434); RBC 3.81 M/mm3 (4.00-5.60); RDW 14.4 % (11.9-15.9); WHITE BLOOD COUNT 7.2 K/mm3 (4.0-10.0)
[2018-01-30 06:05] LABS: INR 0.93 (0.82-1.09); PROTHROMBIN TIME (PATIENT) 10.5 SEC (9.98-11.88)
[2018-01-30 06:17] LABS: ALBUMIN 3.2 g/dl (3.4-5.0); ALK PHOS 51 U/L (45-117); ANION GAP 5 (8-16); BILIRUBIN,TOTAL 0.4 mg/dL (0.2-1.0); BLOOD UREA NITROGEN 4 mg/dL (7-18); CALCIUM 8.1 mg/dL (8.5-10.1); CHLORIDE 103 mmol/L (98-107); CO2 31 mmol/L (21-32); CREATININE 0.7 mg/dL (0.7-1.3); GLUCOSE,RANDOM 89 mg/dL (74-106); SGPT/ALT 19 U/L (12-78); SODIUM 139 mmol/L (136-145); TOT PROT 6.1 g/dl (6.4-8.2)
[2018-01-30 06:19] LABS: POTASSIUM 4.2 mmol/L (3.5-5.1); SGOT/AST 29 U/L (15-37)
== END 2018-01-30 07:15 | disposition short-term general hospital (02) ==
LOC: JER 04:41
DX: S02.82XD Fracture of other specified skull and facial bones, left side, subsequent encounter for fracture with routine healing (principal); Y00.XXXA Assault by blunt object, initial encounter; Y93.89 Activity, other specified; Y92.89 Other specified places as the place of occurrence of the external cause; Y99.8 Other external cause status; J45.909 Unspecified asthma, uncomplicated; Z86.69 Personal history of other diseases of the nervous system and sense organs
CPT/HCPCS: 36415; 70450-TC; 70486-TC; 80053; 85025; 85610; 85730; 99283-25

== ENCOUNTER 2018-05-11 12:48 | Inpatient (IN) | payer OTHER ==
[2018-05-11 13:40] VITALS: BMI 36.1
--- NOTE | 2018-05-11 16:28 | HP ---
CIWA Score - CIWA Score Nausea/Vomitin-No Nausea/No Vomiting Muscle Tremors: 2 Anxiety: 3 Agitation: 3 Paroxysmal Sweats: 2 Orientation: 1-Uncertain about Date (no distress) Tacttile Disturbances: 2-Mild Itch/Numbness/Burn Auditory Disturbances: 0-None Visual Disturbances: 0-None Headache: 0-None Present CIWA-Ar Total Score: 13 Admission ROS S - HPI Chief Complaint: alcohol withdrawal symptoms Allergies/Adverse Reactions: Allergies Allergy/AdvReac Type Severity Reaction Status Date / Time No Known Drug Allergies Allergy Verified 11/01/17 10:10 shellfish derived Allergy Hives Verified 11/01/17 10:10 History of Present Illness: 33 yo male with hx of alcohol, PCP, nicotine dependence is here seeking detox for alcohol. PMHX: Psoriasis, Psoriatric arthritis, asthma , bipolar, and depression. Denies suicidal / homicidal ideation. Reports suicide attempt 3x three years ago. Longest period of sobriety 10 months. Denies hx of seizures or blackouts. Jonas Yip Date: 1985 Address: [address] [place] [address] Sex: Male Rx Written Rx Dispensed Drug Quantity Days Supply Prescriber Name 01/28/2018 02/02/2018 oxycodone hcl 5 mg tablet 40 7 Elayne Simeon [employer]PER 01/31/2018 01/31/2018 dextroamp-amphetamin 30 mg tab 30 30 Yao Lewis MD 06/05/2017 10/18/2017 zolpidem tartrate 5 mg tablet 15 30 Yao Lewis MD Patient Name: Jonas Redd Date: 1985 Address: [address] [place] [address] Sex: Male Rx Written Rx Dispensed Drug Quantity Days Supply Prescriber Name 06/05/2017 09/21/2017 zolpidem tartrate 5 mg tablet 15 30 Yao Lewis MD 06/05/2017 08/28/2017 zolpidem tartrate 5 mg tablet 15 30 Yao Lewis MD 06/05/2017 06/05/2017 zolpidem tartrate 5 mg tablet 15 30 Yao Lewis MD Exam Limitations: No Limitations - Ebola screening Have you traveled outside of the country in the last 21 days: No Have you had contact with anyone from an Ebola affected area: No Have you been sick,other than usual withdrawal symptoms: No Do you have a fever: No - Review of Systems Constitutional: Loss of Appetite, Changes in sleep, Other (weight gain) EENT: reports: No Symptoms Reported Respiratory: reports: No Symptoms reported Cardiac: reports: No Symptoms Reported GI: reports: Poor Appetite, Poor Fluid Intake : reports: No Symptoms Reported Musculoskeletal: reports: Joint Pain (hx psoriatric arthritis) Integumentary: reports: Lesions (silvery plaques secondary to psoriasis), Pruritus, Other (hx psoriasis) Neuro: reports: See HPI Endocrine: reports: No Symptoms Reported Hematology: reports: No Symptoms Reported Psychiatric: reports: Orientated x3, Anxious Other Systems: Reviewed and Negative Patient History - Patient Medical History Hx Anemia: No Hx Asthma: Yes (MDI) Hx Chronic Obstructive Pulmonary Disease (COPD): No Hx Cancer: No Hx Cardiac Disorders: No Hx Congestive Heart Failure: No Hx Hypertension: No Hx Hypercholesterolemia: No Hx Pacemaker: No HX Cerebrovascular Accident: No Hx Seizures: Yes (as a child.) Hx Dementia: No Hx Diabetes: No Hx Gastrointestinal Disorders: No Hx Liver Disease: No Hx Genitourinary Disorders: No Hx Sexually Transmitted Disorders: No Hx Renal Disease (ESRD): No Hx Thyroid Disease: No Hx Human Immunodeficiency Virus (HIV): No (NEGATIVE HX) Hx Hepatitis C: No (last tested 4 months ago ) Hx Depression: Yes (ON MED) Hx Suicide Attempt: Yes (Pt states he tried to jump off bridge 1 year ago but was stopped by wallboard worker.) Hx Bipolar Disorder: Yes (ON MEDS ) Hx Schizophrenia: Yes - Patient Surgical History Past Surgical History: No Hx Neurologic Surgery: No Hx Cataract Extraction: No Hx Cardiac Surgery: No Hx Lung Surgery: No Hx Breast Surgery: No Hx Breast Biopsy: No Hx Abdominal Surgery: No Hx Appendectomy: No Hx Cholecystectomy: No Hx Genitourinary Surgery: No Hx Section: No Hx Orthopedic Surgery: No Anesthesia Reaction: No - PPD History Documented Results: Negative w/proof Date: 08/04/16 Results: 0 MM PPD to be Administered?: Yes - Smoking Cessation Smoking history: Current every day smoker Have you smoked in the past 12 months: No Aproximately how many cigarettes per day: 10 Cigars Per Day: 0 Hx Chewing Tobacco Use: No Initiated information on smoking cessation: Yes 'Breaking Loose' booklet given: 05/11/18 - Substance & Tx. History Hx Alcohol Use: Yes Hx Substance Use: Yes Substance Use Type: Alcohol Hx Substance Use Treatment: Yes ([facility]) - Substances Abused Alcohol Route: Oral Frequency: 3-6 times per week Amount used: 10 beers x 12 oz Age of first use: 13 Date of Last Use: 05/11/18 PCP Route: Smoking Frequency: Daily Amount used: 1/2 oz Age of first use: 14 Date of Last Use: 05/11/18 Family Disease History - Family Disease History Family Disease History: Respiratory: Brother (3 living - one with asthma), Sister (two living - one with asthma), Other: Father (living, hx drugs and etoh) , Mother (living, hx GERD), Son (one age 12 ), Daughter (two ages 10 and 5 - healthy) Admission Physical Exam [facility] - Vital Signs Vital Signs: Vital Signs - 24 hr 05/11/18 13:38 Temperature 99.0 F Pulse Rate 97 H Respiratory 20 Rate Blood Pressure 139/86 - Physical General Appearance: Yes: Disheveled, Mild Distress, Obese, Anxious HEENTM: Yes: EOMI, Hearing grossly Normal, Normal ENT Inspection, Normocephalic , Normal Voice, HAL, Pharynx Normal, Tm's normal Respiratory: Yes: Chest Non-Tender, Lungs Clear, Normal Breath Sounds, No Respiratory Distress, No Accessory Muscle Use Neck: Yes: Within Normal Limits Breast: Yes: Breast Exam Deferred Cardiology: Yes: Regular Rhythm, Regular Rate Abdominal: Yes: Normal Bowel Sounds, Non Tender, Soft, Protuberent Genitourinary: Yes: Within Normal Limits Back: Yes: Normal Inspection Musculoskeletal: Yes: full range of Motion, Gait Steady, Pelvis Stable Extremities: Yes: Normal Capillary Refill, Normal Inspection, Normal Range of Motion, Non-Tender Neurological: Yes: truck caterer II-XII NML intact, Fully Oriented, Alert, Motor Strength 5/5, Depressed Affect Integumentary: Yes: Other (silvery plaques both arms, no infection , skin intact ) Lymphatic: Yes: Within Normal Limits - Diagnostic (1) Psychiatric disorder Current Visit: Yes Status: Suspected (2) Alcohol dependence with uncomplicated withdrawal Current Visit: Yes Status: Acute (3) Nicotine dependence Current Visit: Yes Status: Acute Qualifiers: Nicotine product type: cigarettes Substance use status: in withdrawal Qualified Code(s): F17.213 - Nicotine dependence, cigarettes, with withdrawal (4) PCP dependence Current Visit: Yes Status: Acute (5) Asthma Current Visit: Yes Status: Chronic Qualifiers: Asthma severity: mild Asthma complication type: unspecified (6) Psoriasis Current Visit: No Status: Chronic (7) Psoriatic arthritis Current Visit: Yes Status: Chronic Cleared for Admission S - Detox or Rehab S Level of Care: Medically Managed Detox Regimen/Protocol: Librium S Breath Alcohol Content Breath Alcohol Content: 0 Urine Drug Screen - Results Drug Screen Negative: No Urine Drug Screen Results: THC-Marijuana, PCP-Phencyclidine, TCA-Tricyclic Antidepress
[2018-05-11] MEDS ORDERED: ALBUTEROL SO4 0.083% IH SOL 2.5 MG/3 ML VIAL.NEB. NEB PRN (16:38)
[2018-05-11] MEDS ORDERED: NICOTINE POLACRILEX 2 MG GUM BC PRN (16:40)
[2018-05-11] MEDS ORDERED: ACETAMINOPHEN 325 MG TABLET (FP) PO PRN (16:40)
[2018-05-11] MEDS ORDERED: MAGNESIUM CITRATE 300 ML BOTTLE PO PRN (16:40)
[2018-05-11] MEDS ORDERED: LOPERAMIDE HCL 2 MG CAPSULE PO PRN (16:40)
[2018-05-11] MEDS ORDERED: chlordiazePOXIDE HCL 25 MG CAPSULE PO PRN (16:40)
[2018-05-11] MEDS ORDERED: chlordiazePOXIDE HCL 25 MG CAPSULE PO ONE (16:40)
[2018-05-11] MEDS ORDERED: IBUPROFEN 400 MG TABLET (FP) PO PRN (16:40)
[2018-05-11] MEDS ORDERED: MAGNESIUM HYDROX 2400MG/30ML ORAL SUSPENSION 30 ML CUP PO PRN (16:40)
[2018-05-11] MEDS ORDERED: P-EPHED 60MG/TRIPROLIDI 2.5MG TABLET PO PRN (16:40)
[2018-05-11] MEDS ORDERED: COLLOIDAL OATMEAL 1 BAR EACH TP PRN (16:52)
[2018-05-11] MEDS: ALBUTEROL SO4 8 GM HFA INHALER IH SCH ×2 (18:43→22:20)
[2018-05-11] MEDS ORDERED: KETOCONAZOLE 2 % SHAMPOO 120 ML BOTTLE TP SCH (19:00)
[2018-05-11] MEDS ORDERED: MELATONIN 5 MG TABLETS PO PRN (22:00)
[2018-05-11] MEDS: THIAMINE HCL 100 MG TABLET (FP) PO SCH (22:18)
[2018-05-11] MEDS: chlordiazePOXIDE HCL 25 MG CAPSULE PO SCH (22:19)
[2018-05-11] MEDS: AMMONIUM LACTATE 12% LOTION 225 GM BOTTLE TP SCH (22:19)
[2018-05-12] MEDS: ALBUTEROL SO4 8 GM HFA INHALER IH SCH ×6 (00:50→22:19)
[2018-05-12] MEDS: chlordiazePOXIDE HCL 25 MG CAPSULE PO SCH ×4 (05:37→22:18)
[2018-05-12] MEDS: hydrOXYzine PAMOATE 50 MG CAPSULE (FP) PO SCH ×3 (05:38→22:18)
[2018-05-12] MEDS: guaiFENesin/D-METHORPHAN HB 10 ML UNIT-DOSE CUPS PO PRN ×3 (05:38→22:28)
[2018-05-12] MEDS: MAG HYDROX/AL HYDROX/SIMETH 30 ML UNIT-DOSE CUP PO PRN ×2 (08:55→23:09)
[2018-05-12] MEDS: MENTHOL/PHENOL 1 EACH UD MM PRN ×3 (08:58→22:30)
[2018-05-12] MEDS: PRENATAL VITAMINS W/ FOLIC ACID TABLET (FP) PO SCH (10:16)
[2018-05-12 10:17] LABS: HEMATOCRIT 42.7 % (35.4-49); HEMOGLOBIN 14.3 GM/dL (11.7-16.9); MCH 31.4 pg (25.7-33.7); MCHC 33.4 g/dl (32.0-35.9); MEAN PLT VOLUME 9.5 fl (7.5-11.1); PLATELET COUNT 209 K/MM3 (134-434); RBC 4.54 M/mm3 (4.00-5.60); RDW 13.6 % (11.9-15.9); WHITE BLOOD COUNT 9.9 K/mm3 (4.0-10.0)
[2018-05-12] MEDS: AMMONIUM LACTATE 12% LOTION 225 GM BOTTLE TP SCH ×2 (10:18→22:20)
[2018-05-12] MEDS: NICOTINE 14 MG/24 HOURS TOPICAL PATCH TD SCH (10:18)
[2018-05-12] MEDS: BETAMETHASONE VALERATE 0.1% CREAM 15 GM TUBE TP SCH (10:19)
[2018-05-12 10:38] LABS: ALBUMIN 3.7 g/dl (3.4-5.0); ANION GAP 8 (8-16); BLOOD UREA NITROGEN 14 mg/dL (7-18); CALCIUM 8.7 mg/dL (8.5-10.1); CHLORIDE 97 mmol/L (98-107); CO2 33 mmol/L (21-32); GLUCOSE,RANDOM 95 mg/dL (74-106); POTASSIUM 3.9 mmol/L (3.5-5.1); SODIUM 138 mmol/L (136-145)
[2018-05-12 10:40] LABS: ALK PHOS 85 U/L (45-117); BILIRUBIN,TOTAL 1.2 mg/dL (0.2-1.0); CREATININE 1.2 mg/dL (0.7-1.3); SGOT/AST 19 U/L (15-37); SGPT/ALT 30 U/L (12-78); TOT PROT 6.8 g/dl (6.4-8.2)
[2018-05-12 10:40] LABS: URINE APPEARANCE TURBID; URINE BILIRUBIN NEGATIVE (<2.0 mg/dL); URINE COLOR YELLOW; URINE GLUCOSE (UA) NEGATIVE (NEGATIVE); URINE KETONE 1+ (NEGATIVE); URINE LEUK ESTERASE NEGATIVE (NEGATIVE); URINE NITRITE NEGATIVE (NEGATIVE)
[2018-05-12 10:42] LABS: URINE PROTEIN 1+ (NEGATIVE)
[2018-05-12 10:51] LABS: URINE MUCUS FEW
--- NOTE | 2018-05-12 12:28 | PN ---
S CIWA - CIWA Score Nausea/Vomitin Muscle Tremors: 2 Anxiety: 2 Agitation: 2 Paroxysmal Sweats: 2 Orientation: 0-Oriented Tacttile Disturbances: 1-Very Mild Itch/Numbness Auditory Disturbances: 0-None Visual Disturbances: 1-Very Mild Sensitivity Headache: 3-Moderate CIWA-Ar Total Score: 15 S Progress Note (SOAP) Subjective: Bilateral leg pain, epigastric discomfort and sleep interruption Objective: 05/12/18 12:27 Vital Signs 05/12/18 05/12/18 06:00 10:21 Temperature 97.5 F L 97.3 F L Pulse Rate 113 H 99 H Respiratory 18 18 Rate Blood Pressure 113/69 126/76 Laboratory Last Values WBC 9.9 K/mm3 (4.0-10.0) 05/12/18 08:00 RBC 4.54 M/mm3 (4.00-5.60) 05/12/18 08:00 Hgb 14.3 GM/dL (11.7-16.9) 05/12/18 08:00 Hct 42.7 % (35.4-49) D 05/12/18 08:00 MCV 94.0 fl (80-96) 05/12/18 08:00 MCH 31.4 pg (25.7-33.7) 05/12/18 08:00 MCHC 33.4 g/dl (32.0-35.9) 05/12/18 08:00 RDW 13.6 % (11.9-15.9) 05/12/18 08:00 Plt Count 209 K/MM3 (134-434) D 05/12/18 08:00 MPV 9.5 fl (7.5-11.1) 05/12/18 08:00 Sodium 138 mmol/L (136-145) 05/12/18 08:00 Potassium 3.9 mmol/L (3.5-5.1) 05/12/18 08:00 Chloride 97 mmol/L (98-107) L 05/12/18 08:00 Carbon Dioxide 33 mmol/L (21-32) H 05/12/18 08:00 Anion Gap 8 (8-16) 05/12/18 08:00 BUN 14 mg/dL (7-18) 05/12/18 08:00 Creatinine 1.2 mg/dL (0.7-1.3) 05/12/18 08:00 Creat Clearance w eGFR > 60 (>60) 05/12/18 08:00 Random Glucose 95 mg/dL (74-106) 05/12/18 08:00 Calcium 8.7 mg/dL (8.5-10.1) 05/12/18 08:00 Total Bilirubin 1.2 mg/dL (0.2-1.0) H 05/12/18 08:00 AST 19 U/L (15-37) D 05/12/18 08:00 ALT 30 U/L (12-78) D 05/12/18 08:00 Alkaline Phosphatase 85 U/L (45-117) 05/12/18 08:00 Total Protein 6.8 g/dl (6.4-8.2) 05/12/18 08:00 Albumin 3.7 g/dl (3.4-5.0) 05/12/18 08:00 Urine Color Yellow 05/12/18 08:20 Urine Appearance Turbid 05/12/18 08:20 Urine pH 5.0 (5.0-8.0) 05/12/18 08:20 Ur Specific [place] 1.026 (1.001-1.035) 05/12/18 08:20 Urine Protein 1+ (NEGATIVE) H 05/12/18 08:20 Urine Glucose (UA) Negative (NEGATIVE) 05/12/18 08:20 Urine Ketones 1+ (NEGATIVE) H 05/12/18 08:20 Urine Blood Negative (NEGATIVE) 05/12/18 08:20 Urine Nitrite Negative (NEGATIVE) 05/12/18 08:20 Urine Bilirubin Negative (<2.0 mg/dL) 05/12/18 08:20 Urine Urobilinogen 2.0 mg/dL (0.2-1.0) 05/12/18 08:20 Ur Leukocyte Esterase Negative (NEGATIVE) 05/12/18 08:20 Urine WBC (Auto) None /hpf (3-5) 05/12/18 08:20 Urine RBC (Auto) None /hpf (0-3) 05/12/18 08:20 Urine Mucus Few 05/12/18 08:20 RPR Titer Nonreactive (NONREACTIVE) 05/12/18 08:00 HIV 1&2 Antibody Screen Negative 05/12/18 08:00 HIV P24 Antigen Negative 05/12/18 08:00 Labs noted Assessment: 05/12/18 12:28 Withdrawal sx Plan: Continue detox
[2018-05-12] MEDS ORDERED: KETOCONAZOLE 2 % SHAMPOO 120 ML BOTTLE TP SCH (13:15)
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
[2018-05-12] MEDS ORDERED: diphenhydrAMINE HCL 25 MG CAPSULE (FP) PO PRN (18:51)
[2018-05-12] MEDS: QUEtiapine FUMARATE 100 MG TABLET (FP) PO SCH (22:18)
[2018-05-12] MEDS: THIAMINE HCL 100 MG TABLET (FP) PO SCH (22:18)
[2018-05-13] MEDS: ALBUTEROL SO4 8 GM HFA INHALER IH SCH ×3 (00:55→10:08)
[2018-05-13] MEDS: hydrOXYzine PAMOATE 50 MG CAPSULE (FP) PO SCH ×3 (05:39→22:48)
[2018-05-13] MEDS: chlordiazePOXIDE HCL 25 MG CAPSULE PO SCH ×3 (05:40→17:31)
[2018-05-13] MEDS: AMMONIUM LACTATE 12% LOTION 225 GM BOTTLE TP SCH ×2 (10:08→22:49)
[2018-05-13] MEDS: NICOTINE 14 MG/24 HOURS TOPICAL PATCH TD SCH (10:08)
[2018-05-13] MEDS: PRENATAL VITAMINS W/ FOLIC ACID TABLET (FP) PO SCH (10:08)
[2018-05-13] MEDS: BETAMETHASONE VALERATE 0.1% CREAM 15 GM TUBE TP SCH (10:08)
[2018-05-13] MEDS: guaiFENesin/D-METHORPHAN HB 10 ML UNIT-DOSE CUPS PO PRN (10:27)
[2018-05-13] MEDS: MAG HYDROX/AL HYDROX/SIMETH 30 ML UNIT-DOSE CUP PO PRN ×2 (10:27→22:57)
[2018-05-13] MEDS: MENTHOL/PHENOL 1 EACH UD MM PRN (10:27)
[2018-05-13] MEDS ORDERED: ALBUTEROL SO4 8 GM HFA INHALER IH PRN (10:51)
[2018-05-13] MEDS ORDERED: BETAMETHASONE VALERATE 0.1% CREAM 15 GM TUBE TP SCH (10:52)
--- NOTE | 2018-05-13 10:57 | PN ---
[facility] CIWA - CIWA Score Nausea/Vomitin-Mild Nausea/No Vomiting Muscle Tremors: 4-Moderate,w/Arms Extend Anxiety: 4-Mod. Anxious/Guarded Agitation: 3 Paroxysmal Sweats: 1-Minimal Palms Moist Orientation: 0-Oriented Tacttile Disturbances: 0-None Auditory Disturbances: 0-None Visual Disturbances: 0-None Headache: 0-None Present CIWA-Ar Total Score: 13 BHS Progress Note (SOAP) Subjective: sweat tremor restlessness irritable Objective: 05/13/18 10:56 Vital Signs Temperature 97.0 F L 05/13/18 06:00 Pulse Rate 85 05/13/18 06:00 Respiratory Rate 18 05/13/18 06:00 Blood Pressure 116/80 05/13/18 06:00 O2 Sat by Pulse Oximetry (%) Laboratory Last Values WBC 9.9 K/mm3 (4.0-10.0) 05/12/18 08:00 RBC 4.54 M/mm3 (4.00-5.60) 05/12/18 08:00 Hgb 14.3 GM/dL (11.7-16.9) 05/12/18 08:00 Hct 42.7 % (35.4-49) D 05/12/18 08:00 MCV 94.0 fl (80-96) 05/12/18 08:00 MCH 31.4 pg (25.7-33.7) 05/12/18 08:00 MCHC 33.4 g/dl (32.0-35.9) 05/12/18 08:00 RDW 13.6 % (11.9-15.9) 05/12/18 08:00 Plt Count 209 K/MM3 (134-434) D 05/12/18 08:00 MPV 9.5 fl (7.5-11.1) 05/12/18 08:00 Sodium 138 mmol/L (136-145) 05/12/18 08:00 Potassium 3.9 mmol/L (3.5-5.1) 05/12/18 08:00 Chloride 97 mmol/L (98-107) L 05/12/18 08:00 Carbon Dioxide 33 mmol/L (21-32) H 05/12/18 08:00 Anion Gap 8 (8-16) 05/12/18 08:00 BUN 14 mg/dL (7-18) 05/12/18 08:00 Creatinine 1.2 mg/dL (0.7-1.3) 05/12/18 08:00 Creat Clearance w eGFR > 60 (>60) 05/12/18 08:00 Random Glucose 95 mg/dL (74-106) 05/12/18 08:00 Calcium 8.7 mg/dL (8.5-10.1) 05/12/18 08:00 Total Bilirubin 1.2 mg/dL (0.2-1.0) H 05/12/18 08:00 AST 19 U/L (15-37) D 05/12/18 08:00 ALT 30 U/L (12-78) D 05/12/18 08:00 Alkaline Phosphatase 85 U/L (45-117) 05/12/18 08:00 Total Protein 6.8 g/dl (6.4-8.2) 05/12/18 08:00 Albumin 3.7 g/dl (3.4-5.0) 05/12/18 08:00 Urine Color Yellow 05/12/18 08:20 Urine Appearance Turbid 05/12/18 08:20 Urine pH 5.0 (5.0-8.0) 05/12/18 08:20 Ur Specific [place] 1.026 (1.001-1.035) 05/12/18 08:20 Urine Protein 1+ (NEGATIVE) H 05/12/18 08:20 Urine Glucose (UA) Negative (NEGATIVE) 05/12/18 08:20 Urine Ketones 1+ (NEGATIVE) H 05/12/18 08:20 Urine Blood Negative (NEGATIVE) 05/12/18 08:20 Urine Nitrite Negative (NEGATIVE) 05/12/18 08:20 Urine Bilirubin Negative (<2.0 mg/dL) 05/12/18 08:20 Urine Urobilinogen 2.0 mg/dL (0.2-1.0) 05/12/18 08:20 Ur Leukocyte Esterase Negative (NEGATIVE) 05/12/18 08:20 Urine WBC (Auto) None /hpf (3-5) 05/12/18 08:20 Urine RBC (Auto) None /hpf (0-3) 05/12/18 08:20 Urine Mucus Few 05/12/18 08:20 RPR Titer Nonreactive (NONREACTIVE) 05/12/18 08:00 HIV 1&2 Antibody Screen Negative 05/12/18 08:00 HIV P24 Antigen Negative 05/12/18 08:00 lab noted Assessment: 05/13/18 10:56 withdrawal sx psoriasis Plan: continue detox large surface of psoriasis eucerin cream
[2018-05-13] MEDS ORDERED: MINERAL OIL/PETROLAT/WATER TOPICAL CREAM 113 GM JAR TP SCH (22:00)
[2018-05-13] MEDS: chlordiazePOXIDE 5 MG CAPSULE PO SCH (22:48)
[2018-05-13] MEDS: THIAMINE HCL 100 MG TABLET (FP) PO SCH (22:48)
[2018-05-13] MEDS: QUEtiapine FUMARATE 100 MG TABLET (FP) PO SCH (22:48)
[2018-05-14] MEDS: hydrOXYzine PAMOATE 50 MG CAPSULE (FP) PO SCH (05:04)
[2018-05-14] MEDS: chlordiazePOXIDE 5 MG CAPSULE PO SCH ×2 (06:57→12:43)
[2018-05-14 09:48] VITALS: BP 122/80; PULSE 96; TEMP 98.2
[2018-05-14] MEDS: AMMONIUM LACTATE 12% LOTION 225 GM BOTTLE TP SCH (10:24)
[2018-05-14] MEDS: NICOTINE 14 MG/24 HOURS TOPICAL PATCH TD SCH (10:25)
[2018-05-14] MEDS: PRENATAL VITAMINS W/ FOLIC ACID TABLET (FP) PO SCH (10:25)
[2018-05-14] MEDS: MAG HYDROX/AL HYDROX/SIMETH 30 ML UNIT-DOSE CUP PO PRN (10:26)
--- NOTE | 2018-05-14 10:55 | PN ---
[facility] Progress Note (SOAP) Subjective: no tremor less sweat social with peers in day room discuss aftercare Objective: 05/14/18 10:58 Vital Signs Temperature 98.2 F 05/14/18 09:48 Pulse Rate 96 H 05/14/18 09:48 Respiratory Rate 20 05/14/18 09:48 Blood Pressure 122/80 05/14/18 09:48 O2 Sat by Pulse Oximetry (%) Laboratory Last Values WBC 9.9 K/mm3 (4.0-10.0) 05/12/18 08:00 RBC 4.54 M/mm3 (4.00-5.60) 05/12/18 08:00 Hgb 14.3 GM/dL (11.7-16.9) 05/12/18 08:00 Hct 42.7 % (35.4-49) D 05/12/18 08:00 MCV 94.0 fl (80-96) 05/12/18 08:00 MCH 31.4 pg (25.7-33.7) 05/12/18 08:00 MCHC 33.4 g/dl (32.0-35.9) 05/12/18 08:00 RDW 13.6 % (11.9-15.9) 05/12/18 08:00 Plt Count 209 K/MM3 (134-434) D 05/12/18 08:00 MPV 9.5 fl (7.5-11.1) 05/12/18 08:00 Sodium 138 mmol/L (136-145) 05/12/18 08:00 Potassium 3.9 mmol/L (3.5-5.1) 05/12/18 08:00 Chloride 97 mmol/L (98-107) L 05/12/18 08:00 Carbon Dioxide 33 mmol/L (21-32) H 05/12/18 08:00 Anion Gap 8 (8-16) 05/12/18 08:00 BUN 14 mg/dL (7-18) 05/12/18 08:00 Creatinine 1.2 mg/dL (0.7-1.3) 05/12/18 08:00 Creat Clearance w eGFR > 60 (>60) 05/12/18 08:00 Random Glucose 95 mg/dL (74-106) 05/12/18 08:00 Calcium 8.7 mg/dL (8.5-10.1) 05/12/18 08:00 Total Bilirubin 1.2 mg/dL (0.2-1.0) H 05/12/18 08:00 AST 19 U/L (15-37) D 05/12/18 08:00 ALT 30 U/L (12-78) D 05/12/18 08:00 Alkaline Phosphatase 85 U/L (45-117) 05/12/18 08:00 Total Protein 6.8 g/dl (6.4-8.2) 05/12/18 08:00 Albumin 3.7 g/dl (3.4-5.0) 05/12/18 08:00 Urine Color Yellow 05/12/18 08:20 Urine Appearance Turbid 05/12/18 08:20 Urine pH 5.0 (5.0-8.0) 05/12/18 08:20 Ur Specific [place] 1.026 (1.001-1.035) 05/12/18 08:20 Urine Protein 1+ (NEGATIVE) H 05/12/18 08:20 Urine Glucose (UA) Negative (NEGATIVE) 05/12/18 08:20 Urine Ketones 1+ (NEGATIVE) H 05/12/18 08:20 Urine Blood Negative (NEGATIVE) 05/12/18 08:20 Urine Nitrite Negative (NEGATIVE) 05/12/18 08:20 Urine Bilirubin Negative (<2.0 mg/dL) 05/12/18 08:20 Urine Urobilinogen 2.0 mg/dL (0.2-1.0) 05/12/18 08:20 Ur Leukocyte Esterase Negative (NEGATIVE) 05/12/18 08:20 Urine WBC (Auto) None /hpf (3-5) 05/12/18 08:20 Urine RBC (Auto) None /hpf (0-3) 05/12/18 08:20 Urine Mucus Few 05/12/18 08:20 RPR Titer Nonreactive (NONREACTIVE) 05/12/18 08:00 HIV 1&2 Antibody Screen Negative 05/12/18 08:00 HIV P24 Antigen Negative 05/12/18 08:00 lab noted Assessment: 05/14/18 10:58 mild withdrawal sx Plan: medically supervised detox
--- NOTE | 2018-05-14 11:09 | DS ---
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 patient had experiences with [facility] with a "long period" of alcohol free - Physical Exam Results Vital Signs: Vital Signs Temperature 98.2 F 05/14/18 09:48 Pulse Rate 96 H 05/14/18 09:48 Respiratory Rate 20 05/14/18 09:48 Blood Pressure 122/80 05/14/18 09:48 O2 Sat by Pulse Oximetry (%) Pertinent Admission Physical Exam Findings: alcohol withdrawal sx Vital Signs Temperature 98.2 F 05/14/18 09:48 Pulse Rate 96 H 05/14/18 09:48 Respiratory Rate 20 05/14/18 09:48 Blood Pressure 122/80 05/14/18 09:48 O2 Sat by Pulse Oximetry (%) Laboratory Last Values WBC 9.9 K/mm3 (4.0-10.0) 05/12/18 08:00 RBC 4.54 M/mm3 (4.00-5.60) 05/12/18 08:00 Hgb 14.3 GM/dL (11.7-16.9) 05/12/18 08:00 Hct 42.7 % (35.4-49) D 05/12/18 08:00 MCV 94.0 fl (80-96) 05/12/18 08:00 MCH 31.4 pg (25.7-33.7) 05/12/18 08:00 MCHC 33.4 g/dl (32.0-35.9) 05/12/18 08:00 RDW 13.6 % (11.9-15.9) 05/12/18 08:00 Plt Count 209 K/MM3 (134-434) D 05/12/18 08:00 MPV 9.5 fl (7.5-11.1) 05/12/18 08:00 Sodium 138 mmol/L (136-145) 05/12/18 08:00 Potassium 3.9 mmol/L (3.5-5.1) 05/12/18 08:00 Chloride 97 mmol/L (98-107) L 05/12/18 08:00 Carbon Dioxide 33 mmol/L (21-32) H 05/12/18 08:00 Anion Gap 8 (8-16) 05/12/18 08:00 BUN 14 mg/dL (7-18) 05/12/18 08:00 Creatinine 1.2 mg/dL (0.7-1.3) 05/12/18 08:00 Creat Clearance w eGFR > 60 (>60) 05/12/18 08:00 Random Glucose 95 mg/dL (74-106) 05/12/18 08:00 Calcium 8.7 mg/dL (8.5-10.1) 05/12/18 08:00 Total Bilirubin 1.2 mg/dL (0.2-1.0) H 05/12/18 08:00 AST 19 U/L (15-37) D 05/12/18 08:00 ALT 30 U/L (12-78) D 05/12/18 08:00 Alkaline Phosphatase 85 U/L (45-117) 05/12/18 08:00 Total Protein 6.8 g/dl (6.4-8.2) 05/12/18 08:00 Albumin 3.7 g/dl (3.4-5.0) 05/12/18 08:00 Urine Color Yellow 05/12/18 08:20 Urine Appearance Turbid 05/12/18 08:20 Urine pH 5.0 (5.0-8.0) 05/12/18 08:20 Ur Specific [place] 1.026 (1.001-1.035) 05/12/18 08:20 Urine Protein 1+ (NEGATIVE) H 05/12/18 08:20 Urine Glucose (UA) Negative (NEGATIVE) 05/12/18 08:20 Urine Ketones 1+ (NEGATIVE) H 05/12/18 08:20 Urine Blood Negative (NEGATIVE) 05/12/18 08:20 Urine Nitrite Negative (NEGATIVE) 05/12/18 08:20 Urine Bilirubin Negative (<2.0 mg/dL) 05/12/18 08:20 Urine Urobilinogen 2.0 mg/dL (0.2-1.0) 05/12/18 08:20 Ur Leukocyte Esterase Negative (NEGATIVE) 05/12/18 08:20 Urine WBC (Auto) None /hpf (3-5) 05/12/18 08:20 Urine RBC (Auto) None /hpf (0-3) 05/12/18 08:20 Urine Mucus Few 05/12/18 08:20 RPR Titer Nonreactive (NONREACTIVE) 05/12/18 08:00 HIV 1&2 Antibody Screen Negative 05/12/18 08:00 HIV P24 Antigen Negative 05/12/18 08:00 lab noted - Treatment Hospital Course: Detox Protocol Followed, Detoxed Safely, Responded well, Discharged Condition Good, Rehab Referral Accepted Patient has Accepted a Rehab Referral to: [facility] - Medication Discharge Medications: Ambulatory Orders Ammonium Lactate Lotion [Lac-Hydrin 12] 1 applic TP BID #1 bottle 10/07/16 Betamethasone Valerate 45 gm TP DAILY 11/01/17 Ketoconazole 2% Shampoo [Nizoral 2% Shampoo -] 1 applic TP Q72H 11/01/17 hydrOXYzine PAMOATE [Vistaril -] 50 mg PO TID #90 capsule 11/02/17 Quetiapine Fumarate [Seroquel -] 100 mg PO HS 05/11/18 Albuterol Sulfate Inhaler - [Ventolin HFA Inhaler -] 2 inh IH Q4H #1 inhaler - Diagnosis (1) Alcohol dependence with uncomplicated withdrawal Current Visit: Yes Status: Acute (2) Nicotine dependence Current Visit: Yes Status: Acute Qualifiers: Nicotine product type: cigarettes Substance use status: in withdrawal Qualified Code(s): F17.213 - Nicotine dependence, cigarettes, with withdrawal (3) Asthma Current Visit: Yes Status: Chronic Qualifiers: Asthma severity: mild Asthma complication type: unspecified (4) Psoriatic arthritis Current Visit: Yes Status: Chronic (5) Bipolar disorder Current Visit: Yes Status: Suspected Qualifiers: Active/Remission status: in partial remission Most recent bipolar episode type: mixed Qualified Code(s): F31.77 - Bipolar disorder, in partial remission , most recent episode mixed (6) COPD (chronic obstructive pulmonary disease) Current Visit: Yes Status: Chronic Qualifiers: COPD type: emphysema Emphysema type: unilateral Qualified Code(s): J43.0 - Unilateral pulmonary emphysema [MacLeod's syndrome] (7) Schizophrenia Current Visit: Yes Status: Suspected Qualifiers: Schizophrenia type: disorganized schizophrenia Qualified Code(s): F20.1 - Disorganized schizophrenia - AMA Did Patient Leave Against Medical Advice: No
--- NOTE | 2018-05-14 11:10 | EKG ---
Test Reason : Blood Pressure : / mmHG Vent. Rate : 103 BPM Atrial Rate : 103 BPM P-R Int : 134 ms QRS Dur : 084 ms QT Int : 350 ms P-R-T Axes : 062 066 054 degrees QTc Int : 458 ms SINUS TACHYCARDIA POSSIBLE LEFT ATRIAL ENLARGEMENT BORDERLINE ECG WHEN COMPARED WITH ECG OF 01-NOV-2017 15:01, VENT. RATE HAS INCREASED BY 38 BPM Confirmed by RANULFO HUI MD ([id number]) on 05/14/2018 11:09:47 AM Referred By: Confirmed By:RANULFO HUI MD
[2018-05-14] MEDS ORDERED: chlordiazePOXIDE HCL 10 MG CAPSULE PO SCH (23:00)
== END 2018-05-14 12:38 | disposition home or self-care (01) | DRG 775 ==
LOC: YASAS 12:48 → Y6N 17:12 → UNDOADMIN 17:12 → Y6N 17:16
PROVIDERS: ADMIT Surgery; ATTEND Surgery
PROC: HZ2ZZZZ Detoxification Services for Substance Abuse Treatment (ICD-10-PCS; principal; 2018-05-11)
DX: F10.230 Alcohol dependence with withdrawal, uncomplicated (principal); F12.20 Cannabis dependence, uncomplicated; F16.20 Hallucinogen dependence, uncomplicated; F17.213 Nicotine dependence, cigarettes, with withdrawal; F19.24 Other psychoactive substance dependence with psychoactive substance-induced mood disorder; F20.1 Disorganized schizophrenia; F25.0 Schizoaffective disorder, bipolar type; F31.77 Bipolar disorder, in partial remission, most recent episode mixed; G47.00 Insomnia, unspecified; J45.20 Mild intermittent asthma, uncomplicated; J43.0 Unilateral pulmonary emphysema [MacLeod's syndrome]; L40.50 Arthropathic psoriasis, unspecified; Z91.14 Patient's other noncompliance with medication regimen; Z91.013 Allergy to seafood; Z91.5 Personal history of self-harm
CPT/HCPCS: 36415; 80053; 81003; 81015; 85027; 86593; 87389; 93005; 93010

== ENCOUNTER 2022-06-04 13:09 | Inpatient (IN) | payer OTHER ==
[2022-06-04 14:15] VITALS: BMI 33.4
[2022-06-04] MEDS ORDERED: IBUPROFEN 600 MG TABLET (FP) PO PRN (16:32)
[2022-06-04] MEDS ORDERED: MAG HYDROX/AL HYDROX/SIMETH 30 ML UNIT-DOSE CUP PO PRN (16:32)
[2022-06-04] MEDS ORDERED: BISMUTH SUBSALICYLATE 524 MG/30 ML PO PRN (16:32)
[2022-06-04] MEDS ORDERED: METHOCARBAMOL 500 MG TABLET PO PRN (16:32)
[2022-06-04] MEDS ORDERED: ACETAMINOPHEN 325 MG TABLET (FP) PO PRN ×2 (16:32)
[2022-06-04] MEDS ORDERED: ONDANSETRON *ODT* 4 MG TABLET SL PRN (16:32)
[2022-06-04] MEDS ORDERED: BENZOCAINE/MENTHOL (CHLORASEPTIC ) LOZENGE MM PRN (16:32)
[2022-06-04] MEDS ORDERED: DICYCLOMINE HCL 10 MG CAPSULE PO PRN (16:32)
[2022-06-04] MEDS ORDERED: MAGNESIUM HYDROX 2400MG/30ML ORAL SUSPENSION 30 ML CUP PO PRN (16:32)
[2022-06-04] MEDS ORDERED: IBUPROFEN 400 MG TABLET (FP) PO PRN (16:32)
[2022-06-04] MEDS ORDERED: diazePAM 5 MG TABLET PO PRN (16:32)
[2022-06-04] MEDS ORDERED: LOPERAMIDE HCL 2 MG CAPSULE PO PRN (16:32)
[2022-06-04] MEDS ORDERED: MAGNESIUM CITRATE 300 ML BOTTLE PO PRN (16:32)
[2022-06-04] MEDS: predniSONE 20 MG TABLET (UD) PO SCH (19:00)
[2022-06-04] MEDS: diazePAM 5 MG TABLET PO SCH ×2 (19:01→22:42)
[2022-06-04] MEDS: hydrOXYzine PAMOATE 25 MG CAPSULE (FP) PO SCH ×2 (19:01→22:41)
[2022-06-04] MEDS: guaiFENesin 200 MG/10 ML 10 ML UNIT-DOSE CUPS PO PRN (19:06)
[2022-06-04] MEDS ORDERED: THIAMINE HCL 100 MG TABLET (FP) PO SCH (22:00)
[2022-06-04] MEDS ORDERED: MELATONIN 5 MG TABLETS PO SCH (22:00)
[2022-06-04] MEDS: NICOTINE 10 MG CARTRIDGE (INHALER) IH PRN (22:42)
[2022-06-05] MEDS: MINERAL OIL/PETROLAT/WATER TOPICAL CREAM 113 GM JAR TP SCH ×2 (00:34→10:41)
[2022-06-05] MEDS: TRIAMCINOLONE ACET 0.5% OINT 15 GM TUBE TP SCH ×2 (00:34→10:42)
[2022-06-05] MEDS: VITAMINS A AND D TOPICAL OINTMENT 60 GM TUBE TP SCH ×3 (00:35→11:43)
[2022-06-05] MEDS: hydrOXYzine PAMOATE 25 MG CAPSULE (FP) PO SCH ×3 (05:39→13:57)
[2022-06-05] MEDS: diazePAM 5 MG TABLET PO SCH ×2 (05:39→10:20)
[2022-06-05 09:50] VITALS: TEMP 97.3
[2022-06-05] MEDS ORDERED: PRENATAL VITAMINS W/ FOLIC ACID TABLET (FP) PO SCH (10:00)
[2022-06-05] MEDS ORDERED: NICOTINE 14 MG/24 HOURS TOPICAL PATCH TD SCH (10:00)
[2022-06-05] MEDS: predniSONE 20 MG TABLET (UD) PO SCH (10:19)
[2022-06-05] MEDS: guaiFENesin 200 MG/10 ML 10 ML UNIT-DOSE CUPS PO PRN (10:23)
[2022-06-05] MEDS: NICOTINE 10 MG CARTRIDGE (INHALER) IH PRN (10:23)
[2022-06-05] MEDS ORDERED: COLLOIDAL OATMEAL 1 BAR EACH TP PRN (11:16)
[2022-06-05] MEDS ORDERED: BUDESONIDE/FORMETEROL FUMARATE 160/4.5 mcg INHALER IH SCH (11:30)
[2022-06-05 13:31] VITALS: BP 115/66; PULSE 61; RESP 18
[2022-06-05 14:34] LABS: HEMATOCRIT 43.1 % (35.4-49); HEMOGLOBIN 14.4 GM/dL (11.7-16.9); MCH 31.9 pg (25.7-33.7); MCHC 33.3 g/dl (32.0-35.9); MEAN CELL VOLUME 95.9 fl (80-96); MEAN PLT VOLUME 9.9 fl (7.5-11.1); PLATELET COUNT 201 10^3/uL (134-434); WHITE BLOOD COUNT 10.1 K/mm3 (4.0-10.0)
[2022-06-05 14:37] LABS: CALCIUM 8.8 mg/dL (8.5-10.1)
[2022-06-05 14:38] LABS: ALBUMIN 3.6 g/dl (3.4-5.0); BLOOD UREA NITROGEN 14.8 mg/dL (7-18)
[2022-06-05 14:41] LABS: CREATININE 0.7 mg/dL (0.55-1.3)
[2022-06-05 14:43] LABS: BILIRUBIN,TOTAL 0.4 mg/dL (0.2-1); TOT PROT 6.5 g/dl (6.4-8.2)
[2022-06-05] MEDS ORDERED: QUEtiapine FUMARATE 25 MG TABLET PO SCH (22:00)
[2022-06-06] MEDS ORDERED: diazePAM 5 MG TABLET PO SCH (06:00)
[2022-06-07] MEDS ORDERED: diazePAM 5 MG TABLET PO SCH (06:00)
[2022-06-07] MEDS ORDERED: predniSONE 20 MG TABLET (UD) PO SCH (10:00)
[2022-06-08] MEDS ORDERED: diazePAM 5 MG TABLET PO ONE (06:00)
== END 2022-06-05 14:45 | disposition left against medical advice (07) | DRG 894 ==
LOC: YASAS 13:09 → Y3N 15:44
PROVIDERS: ADMIT Allergy & Immunology; ATTEND Surgery
PROC: HZ2ZZZZ Detoxification Services for Substance Abuse Treatment (ICD-10-PCS; principal; 2022-06-04)
DX: F10.230 Alcohol dependence with withdrawal, uncomplicated (principal); F14.20 Cocaine dependence, uncomplicated; F16.20 Hallucinogen dependence, uncomplicated; F19.280 Other psychoactive substance dependence with psychoactive substance-induced anxiety disorder; F19.282 Other psychoactive substance dependence with psychoactive substance-induced sleep disorder; F20.1 Disorganized schizophrenia; F12.20 Cannabis dependence, uncomplicated; F17.210 Nicotine dependence, cigarettes, uncomplicated; F25.0 Schizoaffective disorder, bipolar type; Z86.69 Personal history of other diseases of the nervous system and sense organs; Z91.410 Personal history of adult physical and sexual abuse; Z86.16 Personal history of COVID-19; Z28.310 Unvaccinated for COVID-19
CPT/HCPCS: 36415; 80053; 85027; 86780; 87811; 93005; 93010; C9803-CS; U0003; U0005

== ENCOUNTER 2022-08-06 11:39 | Inpatient (IN) | payer OTHER ==
[2022-08-06 12:11] VITALS: BMI 33.9
[2022-08-06] MEDS ORDERED: ONDANSETRON *ODT* 4 MG TABLET SL PRN (15:03)
[2022-08-06] MEDS ORDERED: BENZOCAINE/MENTHOL (CHLORASEPTIC ) LOZENGE MM PRN (15:03)
[2022-08-06] MEDS ORDERED: DICYCLOMINE HCL 10 MG CAPSULE PO PRN (15:03)
[2022-08-06] MEDS ORDERED: METHOCARBAMOL 500 MG TABLET PO PRN (15:03)
[2022-08-06] MEDS ORDERED: NICOTINE POLACRILEX 2 MG GUM BUC PRN (15:03)
[2022-08-06] MEDS ORDERED: MAGNESIUM HYDROX 2400MG/30ML ORAL SUSPENSION 30 ML CUP PO PRN (15:03)
[2022-08-06] MEDS ORDERED: MAG HYDROX/AL HYDROX/SIMETH 30 ML UNIT-DOSE CUP PO PRN (15:03)
[2022-08-06] MEDS ORDERED: IBUPROFEN 400 MG TABLET (FP) PO PRN (15:03)
[2022-08-06] MEDS ORDERED: ACETAMINOPHEN 325 MG TABLET (FP) PO PRN ×2 (15:03)
[2022-08-06] MEDS ORDERED: LOPERAMIDE HCL 2 MG CAPSULE PO PRN (15:03)
[2022-08-06] MEDS ORDERED: diazePAM 5 MG TABLET PO PRN (15:03)
[2022-08-06] MEDS ORDERED: NALOXONE HCL (KLOXXADO) 8 MG SPRAY NS PRN (15:03)
[2022-08-06] MEDS ORDERED: MAGNESIUM CITRATE 300 ML BOTTLE PO PRN (15:03)
[2022-08-06] MEDS ORDERED: BISMUTH SUBSALICYLATE 524 MG/30 ML PO PRN (15:03)
[2022-08-06] MEDS ORDERED: IBUPROFEN 600 MG TABLET (FP) PO PRN (15:03)
[2022-08-06] MEDS ORDERED: predniSONE 20 MG TABLET (UD) PO ONE ×2 (15:10→15:16)
[2022-08-06] MEDS ORDERED: predniSONE 10 MG TABLET (UD) PO ONE (15:12)
[2022-08-06] MEDS ORDERED: BETAMETHASONE VALERATE 0.1% CREAM 15 GM TUBE TP SCH (15:15)
[2022-08-06] MEDS ORDERED: COLLOIDAL OATMEAL 1 BAR EACH TP PRN (15:20)
[2022-08-06] MEDS: diazePAM 5 MG TABLET PO SCH ×2 (18:01→22:16)
[2022-08-06] MEDS: hydrOXYzine PAMOATE 25 MG CAPSULE (FP) PO PRN ×2 (18:02→22:16)
[2022-08-06] MEDS: NICOTINE 10 MG CARTRIDGE (INHALER) IH PRN (18:09)
[2022-08-06] MEDS: THIAMINE HCL 100 MG TABLET (FP) PO SCH (22:16)
[2022-08-06] MEDS: BUDESONIDE/FORMETEROL FUMARATE 80/4.5 mcg INHALER IH SCH (22:17)
[2022-08-06] MEDS: MELATONIN 5 MG TABLETS PO SCH (22:17)
[2022-08-07] MEDS: diazePAM 5 MG TABLET PO SCH ×4 (05:22→23:20)
[2022-08-07] MEDS: hydrOXYzine PAMOATE 25 MG CAPSULE (FP) PO PRN (05:24)
[2022-08-07] MEDS ORDERED: TRIAMCINOLONE ACET 0.025% CREAM 15 GM TUBE TP SCH (10:00)
[2022-08-07] MEDS ORDERED: PRENATAL VITAMINS W/ FOLIC ACID TABLET (FP) PO SCH (10:00)
[2022-08-07] MEDS ORDERED: predniSONE 20 MG TABLET (UD) PO ONE (10:00)
[2022-08-07] MEDS ORDERED: predniSONE 10 MG TABLET (UD) PO ONE (10:00)
[2022-08-07] MEDS: BUDESONIDE/FORMETEROL FUMARATE 80/4.5 mcg INHALER IH SCH ×2 (10:20→23:21)
[2022-08-07] MEDS: NICOTINE 10 MG CARTRIDGE (INHALER) IH PRN (10:25)
[2022-08-07 12:09] LABS: ALBUMIN 3.3 g/dl (3.4-5.0); BLOOD UREA NITROGEN 14.8 mg/dL (7-18); CALCIUM 8.8 mg/dL (8.5-10.1)
[2022-08-07 12:12] LABS: CREATININE 0.9 mg/dL (0.55-1.3)
[2022-08-07 12:13] LABS: BILIRUBIN,TOTAL 0.6 mg/dL (0.2-1)
[2022-08-07 12:30] LABS: HEMATOCRIT 45.1 % (35.4-49); HEMOGLOBIN 14.5 GM/dL (11.7-16.9); MCH 31.4 pg (25.7-33.7); MCHC 32.1 g/dl (32.0-35.9); MEAN CELL VOLUME 97.6 fl (80-96); MEAN PLT VOLUME 9.9 fl (7.5-11.1); PLATELET COUNT 236 10^3/uL (134-434); RBC 4.62 M/mm3 (4.00-5.60); RDW 14.1 % (11.9-15.9); WHITE BLOOD COUNT 9.5 K/mm3 (4.0-10.0)
[2022-08-07] MEDS: VITAMINS A AND D TOPICAL OINTMENT 60 GM TUBE TP SCH ×3 (14:29→23:22)
[2022-08-07 21:26] VITALS: TEMP 97.1
[2022-08-07] MEDS ORDERED: QUEtiapine FUMARATE 50 MG TABLET PO SCH (22:00)
[2022-08-07] MEDS: MELATONIN 5 MG TABLETS PO SCH (23:21)
[2022-08-07] MEDS: THIAMINE HCL 100 MG TABLET (FP) PO SCH (23:22)
[2022-08-08] MEDS: VITAMINS A AND D TOPICAL OINTMENT 60 GM TUBE TP SCH (05:10)
[2022-08-08] MEDS: NICOTINE 10 MG CARTRIDGE (INHALER) IH PRN (05:11)
[2022-08-08] MEDS ORDERED: diazePAM 5 MG TABLET PO SCH (06:00)
[2022-08-08 06:34] VITALS: BP 116/70; PULSE 71; RESP 18
[2022-08-08] MEDS ORDERED: predniSONE 20 MG TABLET (UD) PO ONE (10:00)
[2022-08-09] MEDS ORDERED: diazePAM 5 MG TABLET PO SCH (06:00)
[2022-08-09] MEDS ORDERED: predniSONE 10 MG TABLET (UD) PO ONE (10:00)
[2022-08-10] MEDS ORDERED: predniSONE 5 MG TABLET (UD) PO ONE (06:00)
[2022-08-10] MEDS ORDERED: diazePAM 5 MG TABLET PO ONE (06:00)
== END 2022-08-08 09:25 | disposition left against medical advice (07) | DRG 894 ==
LOC: YASAS 11:39 → Y6N 14:58
PROVIDERS: ADMIT Allergy & Immunology; ATTEND Surgery
PROC: HZ2ZZZZ Detoxification Services for Substance Abuse Treatment (ICD-10-PCS; principal; 2022-08-06)
DX: F10.230 Alcohol dependence with withdrawal, uncomplicated (principal); F14.20 Cocaine dependence, uncomplicated; F16.20 Hallucinogen dependence, uncomplicated; F19.280 Other psychoactive substance dependence with psychoactive substance-induced anxiety disorder; F12.20 Cannabis dependence, uncomplicated; F17.210 Nicotine dependence, cigarettes, uncomplicated; F19.24 Other psychoactive substance dependence with psychoactive substance-induced mood disorder; F25.0 Schizoaffective disorder, bipolar type; F90.9 Attention-deficit hyperactivity disorder, unspecified type; I10 Essential (primary) hypertension; J43.0 Unilateral pulmonary emphysema [MacLeod's syndrome]; J45.20 Mild intermittent asthma, uncomplicated; L40.9 Psoriasis, unspecified; Z28.310 Unvaccinated for COVID-19
CPT/HCPCS: 36415; 80053; 85027; 86780; C9803-CS; U0003; U0005

== ENCOUNTER 2023-12-21 04:47 | Emergency (ER) | payer OTHER ==
[2023-12-21 05:12] VITALS: BP 128/87; PULSE 104; RESP 18; TEMP 98; BMI 30.7
[2023-12-21] MEDS ORDERED: KETOROLAC TROMETHAMINE 15 MG/ML VIAL ONE (05:50)
[2023-12-21] MEDS: KETOROLAC TROMETHAMINE 15 MG/ML VIAL IM ONE (06:13)
== END 2023-12-21 08:30 | disposition home or self-care (01) ==
LOC: JER 04:47
PROC: 3E0233Z Introduction of Anti-inflammatory into Muscle, Percutaneous Approach (ICD-10-PCS; principal; 2023-12-21)
DX: M25.552 Pain in left hip (principal); M79.605 Pain in left leg; M25.562 Pain in left knee; M54.50 Low back pain, unspecified; Y04.8XXA Assault by other bodily force, initial encounter
CPT/HCPCS: 70450-TC; 70486-TC; 72125-TC; 72131-TC; 72192-TC; 73502-TC-LT-FY; 73552-TC-LT-FY; 73562-TC-LT-FY; 73590-TC-LT-FY; 99284-25

== ENCOUNTER 2024-04-30 01:59 | Inpatient (IN) | payer OTHER ==
[2024-04-30 02:35] VITALS: BMI 32.3
[2024-04-30] MEDS ORDERED: POLYETHYLENE GLYCOL (HEALTHYLAX) 3350 17 GM PACKET PO PRN (02:52)
[2024-04-30] MEDS ORDERED: ACETAMINOPHEN 325 MG TABLET (FP) PO PRN (02:52)
[2024-04-30] MEDS ORDERED: BENZONATATE 200 MG CAPSULE PO PRN (02:52)
[2024-04-30] MEDS ORDERED: IBUPROFEN 400 MG TABLET (FP) PO PRN (02:52)
[2024-04-30] MEDS ORDERED: MAGNESIUM HYDROX 2400MG/30ML ORAL SUSPENSION 30 ML CUP PO PRN (02:52)
[2024-04-30] MEDS ORDERED: DICYCLOMINE HCL 10 MG CAPSULE PO PRN (02:52)
[2024-04-30] MEDS ORDERED: BISMUTH SUBSALICYLATE 524 MG/30 ML PO PRN (02:52)
[2024-04-30] MEDS ORDERED: NALOXONE (NARCAN) HCL 4 MG/0.1 ML SPRAY NS PRN (02:52)
[2024-04-30] MEDS ORDERED: NALOXONE HCL 0.4 MG/ML VIAL IM PRN (02:52)
[2024-04-30] MEDS ORDERED: BENZOCAINE/MENTHOL (CHLORASEPTIC ) LOZENGE MM PRN (02:52)
[2024-04-30] MEDS ORDERED: guaiFENesin 600 MG TABLET.ER (FP) PO PRN (02:52)
[2024-04-30] MEDS ORDERED: MAG HYDROX/AL HYDROX/SIMETH 30 ML UNIT-DOSE CUP PO PRN (02:52)
[2024-04-30] MEDS ORDERED: LOPERAMIDE HCL 2 MG CAPSULE PO PRN (02:52)
[2024-04-30] MEDS ORDERED: ONDANSETRON *ODT* 4 MG TABLET SL PRN (02:52)
[2024-04-30] MEDS: hydrOXYzine PAMOATE 25 MG CAPSULE (FP) PO PRN (04:18)
[2024-04-30] MEDS: BUDESONIDE/FORMETEROL FUMARATE 80/4.5 mcg INHALER IH SCH (09:57)
[2024-04-30] MEDS: PRENATAL VITAMINS W/ FOLIC ACID TABLET (FP) PO SCH (09:58)
[2024-04-30] MEDS: NICOTINE 14 MG/24 HOURS TOPICAL PATCH TD SCH (09:59)
[2024-04-30 12:03] LABS: HEMATOCRIT 40.1 % (35.4-49); HEMOGLOBIN 13.2 GM/dL (11.7-16.9); MCH 32.3 pg (25.7-33.7); MEAN CELL VOLUME 97.9 fl (80-96); PLATELET COUNT 212 10^3/uL (134-434); RBC 4.09 M/mm3 (4.00-5.60); RDW 14.4 % (11.9-15.9); WHITE BLOOD COUNT 12.7 K/mm3 (4.0-10.0)
[2024-04-30 12:27] LABS: CHLORIDE 104 mmol/L (98-107); POTASSIUM 3.6 mmol/L (3.5-5.1); SODIUM 142 mmol/L (136-145)
[2024-04-30 12:41] LABS: GLUCOSE,RANDOM 100 mg/dL (74-106)
[2024-04-30 12:43] LABS: ALBUMIN 3.3 g/dl (3.4-5.0); ANION GAP 7 mmol/L (4-13); CALCIUM 8.4 mg/dL (8.5-10.1); CO2 32 mmol/L (21-32)
[2024-04-30 12:44] LABS: BLOOD UREA NITROGEN 14.7 mg/dL (7-18)
[2024-04-30 12:46] LABS: BILIRUBIN,TOTAL 0.5 mg/dL (0.2-1); SGPT/ALT 19 U/L (13-61)
[2024-04-30 12:47] LABS: CREATININE 0.8 mg/dL (0.55-1.3); SGOT/AST 12 U/L (15-37); TOT PROT 6.2 g/dl (6.4-8.2)
[2024-04-30 12:48] LABS: ALK PHOS 59 U/L (45-117)
[2024-04-30] MEDS: TRIAMCINOLONE ACET 0.1% CREAM 15 GM TUBE TP SCH (13:25)
[2024-04-30] MEDS: diazePAM 5 MG TABLET PO SCH (17:06)
[2024-04-30] MEDS: MELATONIN 5 MG TABLETS PO SCH (22:45)
[2024-04-30] MEDS: THIAMINE 100 MG TABLET PO SCH (22:45)
[2024-04-30] MEDS: MINERAL OIL/PETROLAT/WATER TOPICAL CREAM 113 GM JAR TP SCH (22:47)
[2024-04-30] MEDS: METHOCARBAMOL 500 MG TABLET PO PRN (22:48)
[2024-05-01] MEDS: diazePAM 5 MG TABLET PO SCH (05:19)
[2024-05-01] MEDS: NICOTINE POLACRILEX 4 MG GUM BUC PRN (14:07)
[2024-05-01] MEDS: predniSONE 10 MG TABLET (UD) PO ONE ×2 (18:16→18:19)
[2024-05-02] MEDS: diazePAM 5 MG TABLET PO SCH (05:45)
[2024-05-02 08:57] VITALS: BP 127/75; PULSE 67; RESP 16; TEMP 97.3
[2024-05-02] MEDS: predniSONE 10 MG TABLET (UD) PO SCH (09:36)
[2024-05-02] MEDS: IBUPROFEN 600 MG TABLET (FP) PO PRN (09:36)
[2024-05-02] MEDS ORDERED: predniSONE 10 MG TABLET (UD) PO SCH (10:00)
[2024-05-03] MEDS ORDERED: diazePAM 5 MG TABLET PO ONE (06:00)
== END 2024-05-02 12:43 | disposition home or self-care (01) | DRG 897 ==
LOC: YASAS 01:59 → Y6N 03:07
PROVIDERS: ADMIT Allergy & Immunology; ATTEND Surgery
PROC: HZ2ZZZZ Detoxification Services for Substance Abuse Treatment (ICD-10-PCS; principal; 2024-04-30)
DX: F10.230 Alcohol dependence with withdrawal, uncomplicated (principal); F14.20 Cocaine dependence, uncomplicated; F16.20 Hallucinogen dependence, uncomplicated; F19.280 Other psychoactive substance dependence with psychoactive substance-induced anxiety disorder; F19.282 Other psychoactive substance dependence with psychoactive substance-induced sleep disorder; F12.20 Cannabis dependence, uncomplicated; F25.9 Schizoaffective disorder, unspecified; F17.210 Nicotine dependence, cigarettes, uncomplicated; F31.9 Bipolar disorder, unspecified; G40.909 Epilepsy, unspecified, not intractable, without status epilepticus; I10 Essential (primary) hypertension; J45.20 Mild intermittent asthma, uncomplicated; L40.9 Psoriasis, unspecified
CPT/HCPCS: 36415; 71046-TC-FY; 80053; 80305; 80307; 85027; 86780; 93005; 93010

== ENCOUNTER 2025-06-10 05:36 | Inpatient (IN) | payer OTHER ==
[2025-06-10 05:46] VITALS: BMI 30.8
[2025-06-10] MEDS ORDERED: BENZOCAINE/MENTHOL (CHLORASEPTIC ) LOZENGE MM PRN (08:09)
[2025-06-10] MEDS ORDERED: METHOCARBAMOL 500 MG TABLET PO PRN (08:09)
[2025-06-10] MEDS ORDERED: guaiFENesin 600 MG TABLET.ER (FP) PO PRN (08:09)
[2025-06-10] MEDS ORDERED: DICYCLOMINE HCL 10 MG CAPSULE PO PRN (08:09)
[2025-06-10] MEDS ORDERED: ONDANSETRON *ODT* 4 MG TABLET SL PRN (08:09)
[2025-06-10] MEDS ORDERED: BISMUTH SUBSALICYLATE 524 MG/30 ML PO PRN (08:09)
[2025-06-10] MEDS ORDERED: IBUPROFEN 400 MG TABLET (FP) PO PRN (08:09)
[2025-06-10] MEDS ORDERED: IBUPROFEN 600 MG TABLET (FP) PO PRN (08:09)
[2025-06-10] MEDS ORDERED: POLYETHYLENE GLYCOL (HEALTHYLAX) 3350 17 GM PACKET PO PRN (08:09)
[2025-06-10] MEDS ORDERED: MAGNESIUM HYDROX 2400MG/30ML ORAL SUSPENSION 30 ML CUP PO PRN (08:09)
[2025-06-10] MEDS ORDERED: BENZONATATE 200 MG CAPSULE PO PRN (08:09)
[2025-06-10] MEDS ORDERED: LOPERAMIDE HCL 2 MG CAPSULE PO PRN (08:09)
[2025-06-10] MEDS ORDERED: ACETAMINOPHEN 325 MG TABLET (FP) PO PRN (08:09)
[2025-06-10] MEDS ORDERED: NALOXONE (NARCAN) HCL 4 MG/0.1 ML SPRAY NS PRN (08:09)
[2025-06-10] MEDS: hydrOXYzine PAMOATE 25 MG CAPSULE (FP) PO PRN (10:40)
[2025-06-10] MEDS: NALTREXONE HCL 50 MG TABLET PO ONE (10:40)
[2025-06-10] MEDS: PRENATAL VITAMINS W/ FOLIC ACID TABLET (FP) PO SCH (10:41)
[2025-06-10] MEDS: BUDESONIDE/FORMETEROL FUMARATE 160/4.5 mcg INHALER IH SCH (10:41)
[2025-06-10] MEDS: PANTOPRAZOLE 20 MG TABLET PO SCH (10:41)
[2025-06-10] MEDS: predniSONE 20 MG TABLET (UD) PO SCH (10:41)
[2025-06-10] MEDS: NICOTINE 21 MG/24 HOURS TOPICAL PATCH TD SCH (10:41)
[2025-06-10] MEDS: TRIAMCINOLONE ACET 0.1% OINT 15 GM TUBE TP SCH (15:01)
[2025-06-10] MEDS: TRIAMCINOLONE ACET 0.1% OINT 80 GM TUBE TP SCH (22:37)
[2025-06-10] MEDS: QUEtiapine FUMARATE 100 MG TABLET (FP) PO SCH (22:38)
[2025-06-10] MEDS: MELATONIN 5 MG TABLETS PO SCH (22:38)
[2025-06-10] MEDS: THIAMINE 100 MG TABLET PO SCH (22:38)
[2025-06-10] MEDS: MAG HYDROX/AL HYDROX/SIMETH 30 ML UNIT-DOSE CUP PO PRN (22:39)
[2025-06-11] MEDS: NALTREXONE HCL 50 MG TABLET PO SCH (10:35)
[2025-06-11 11:11] LABS: MCHC 31.8 g/dl (32.3-36.5); MEAN CELL VOLUME 101.5 fl (79.0-92.2); MEAN PLT VOLUME 11.4 fl (9.4-12.4); RDW 12.6 % (12.1-15.9)
[2025-06-11 12:40] LABS: GLUCOSE,RANDOM 84.0 mg/dL (74-106); TOT PROT 6.4 g/dl (6.4-8.2)
[2025-06-11 12:43] LABS: ALK PHOS 55.0 U/L (40-150)
[2025-06-11 12:46] LABS: CREATININE 1.06 mg/dL (0.55-1.3); SGOT/AST 22.0 U/L (5-34); SGPT/ALT 25.0 U/L (0-55)
[2025-06-11 15:01] LABS: HIV INTERPRETATION NEGATIVE (NEGATIVE)
[2025-06-11 16:20] LABS: CO2 25.0 mmol/L (21-32)
[2025-06-11] MEDS: MINERAL OIL/PETROLAT/WATER TOPICAL CREAM 113 GM JAR TP SCH (21:22)
[2025-06-12 09:21] VITALS: BP 129/81; PULSE 99; RESP 18; TEMP 97.1
== END 2025-06-12 09:29 | disposition left against medical advice (07) | DRG 897 ==
LOC: YASAS 05:36 → Y3N 09:05
PROVIDERS: ADMIT Allergy & Immunology; ATTEND Allergy & Immunology
PROC: HZ2ZZZZ Detoxification Services for Substance Abuse Treatment (ICD-10-PCS; principal; 2025-06-10)
DX: F10.230 Alcohol dependence with withdrawal, uncomplicated (principal); F16.20 Hallucinogen dependence, uncomplicated; F12.20 Cannabis dependence, uncomplicated; F17.210 Nicotine dependence, cigarettes, uncomplicated; F25.9 Schizoaffective disorder, unspecified; F32.A Depression, unspecified; J45.909 Unspecified asthma, uncomplicated; L40.9 Psoriasis, unspecified
CPT/HCPCS: 36415; 80053; 80307; 85027; 86780; 87389; 93005; 93010